=== PATIENT | male | born 1985 | race Caucasian/White ===

== ENCOUNTER 2020-09-08 15:17 | Outpatient (REF) | payer SELFPAY ==
[2020-09-10 12:14] LABS: Container Type 50 mL Conical; Midpiece Defect 12.5 %; Motile/mL 0.4 x10(6) (>=6.0); Motility 24 % (>=40); Semen Volume 2.5 mL (>=1.5); Sperm/mL 1.7 x10(6) (>=15.0); Study Type Semen; Supravital Stain 25 % live (>=58); Tail Defect 37.5 %; WBC/mL 0.17 x10(6) (<1.00)
== END 2020-09-08 15:18 | disposition home or self-care (01) ==
LOC: LBN 15:17
PROVIDERS: PCP Physician Assistant; Visit Provider Physician Assistant
DX: N46.9 Male infertility, unspecified (principal)
CPT/HCPCS: 89240; 89310

== ENCOUNTER 2022-05-15 16:41 | Inpatient (IN) | payer OTHER, SELFPAY ==
[2022-05-15] VITALS (30 sets, daily range): BP systolic 119–144; BP diastolic 45–77; PULSE 78–101; RESP 9–20; TEMP 36.7–38.9; O2SAT 94–100; BMI 25.8
--- NOTE | 2022-05-15 17:00 | DI.CT_ITS ---
Exam(s) CT ABDOMEN PELVIS W EXAM: CT ABDOMEN PELVIS W CLINICAL HISTORY: right lower abdominal pain TECHNIQUE: Imaging Protocol: Axial computed tomography images with coronal and sagittal reformatted images were created and reviewed CONTRAST MATERIAL: Intravenous: Omnipaque 350 Contrast volume:100 mL Oral: No. COMPARISON: No exams were available for comparison FINDINGS: High density material within the bowel likely represent previous patient meal. ABDOMEN: Lung Bases: Normal where visualized. Liver: Normal density. No measurable mass. Portal, Superior Mesenteric, and Splenic Veins: Unremarkable. Gallbladder and Biliary Tract: No radiodense calculus or dilation. Pancreas: Normal density, no abnormal calcifications or inflammatory process. Spleen: Normal. Adrenals: No masses seen. Kidneys: Normal size, contour and axis. No radiodense stones or obstructive uropathy. No masses seen. Abdominal Aorta: Abdominal portion non-dilated. Bowel: There is no evidence of bowel obstruction. There is a blind-ending thick-walled tubular struc ture in the right lower quadrant (series 5, images 520 through 631). The tip of the appendix is seen on image 524 and anterior to the right common iliac artery. It descends inferiorly and to the right to image 631 where it connects with the cecum. There is mild inflammatory change around the tubular structure. There is a small amount of free fluid in the pelvis. No focal fluid collection is seen to suggest an abscess. No pneumoperitoneum is present. Mildly enlarged lymph nodes are seen in the right lower quadrant which are likely reactive. Peritoneal Cavity: There is a small amount of free fluid in the pelvis. There are tiny foci of air s een within the peritoneal cavity which are felt to lie within bowel loops.Free air cannot be definite ly excluded. Lymph Nodes: Mildly enlarged lymph nodes seen in the pelvis. Bones: Within normal limits for the patient's age. Soft Tissues: Unremarkable. PELVIS: Bladder: Symmetric distention, no gross wall thickening. Reproductive Organs: Unremarkable as visualized. Lymph Nodes: Within normal limits. Bones: Within normal limits for the patient's age. There is a well-circumscribed lytic lesion in the left iliac bone. It has mildly expansile characteristics. No cortical disruption or periosteal zandra ction is seen. No associated soft tissue mass is present. This likely reflects a benign lesion. Fo llow-up as clinically appropriate. IMPRESSION: 1. Findings of an acute appendicitis. There is a small amount of free fluid in the pelvis. No absce ss or free air is identified. 2. Findings were discussed with Dr. Sanchez at 6:40 p.m. on 05/15/2022. RADIATION DOSE DELIVERED: 783.55mGy.cm Total DLP DATA REPOSITORY: All CT scans at this facility are submitted to the National Radiology Data Registry (NRDR) Dose Index Registry (DIR) with the [employer] (A[employer]). RADIATION OPTIMIZATION: All CT scans at this facility use at least one of these dose optimization te chniques: automated exposure control; mA and/or kV adjustment per patient size (includes targeted exa ms where dose is matched to clinical indication); or iterative reconstruction.
--- NOTE | 2022-05-15 17:07 | W.ED.GENAD ---
Discharge Plan Disposition Patient Disposition: Admit to [facility] Condition: Stable Discharge Details Clinical Impression: Acute appendicitis Primary Care Provider: Venancio Mandel ED Provider: Suleiman Sanchez Home Meds and New Rx's Prescriptions: No Action finasteride 1 mg Tablet 1 mg PO DAILY Medical Decision Making 36-year-old male with no significant past medical history except for right inguinal hernia presents today for abdominal pain. Patient states that the symptoms began about 2 to 3 weeks ago. He described it as an achy painful sensation throughout his lower abdomen. It was relatively constant but came and went in severity. He was uncertain if there was a relation to food. He had also been doing a significant amount of abdominal workouts and thought that it may have been musculoskeletal, however as the muscular pain improved, his abdominal pain continued. Patient states that pain climax until about a week ago when it went away nearly completely, but has since come back and is worse than before. He admits to nausea but denies vomiting. He maintains an extremely regimented daily diet routine, which is unchanging and on fluctuating. He has no spicy foods, significant tomato-based products, he denies any alcohol use whatsoever. He did have testosterone supplementations for his workout regiment 2 to 3 months ago, but has not been using for the last month or so since symptoms began. He did take some ibuprofen initially when the symptoms were going on, and this did not change his symptoms. He has noted a few darker stools about a week or so ago but this is resolved. He denies any personal or family history of Crohn's disease, ulcerative colitis, or irritable bowel syndrome. He denies any increased fatigue. Pain is made worse with movement and walking. Pain is located in the lower abdominal region currently. He describes the current pain as achy and shooting. No urinary complaint. Exam demonstrates a well-appearing male with mild to moderate right lower abdominal tenderness. No evidence of testicular torsion, no signs of genital pain or tenderness. No epigastric pain. Symptoms are concerning for potential intra-abdominal pathology including appendicitis, intra-abdominal abscess, or colitis. We will get a CT scan, rehydrate, monitor closely and reassess. 6:[address] scan was initially read by virtual radiology as negative for appendicitis, however it is certainly a challenging CT scan to read secondary to the patient's low body fat. They were not able to visualize the appendicitis on their assessment. We did add a CRP and this is notably elevated. I did consult surgery and discussed the case with Dr. Shook and she certainly also has clinical concern. Plan was initially to get a repeat scan with oral contrast, however after discussion with our onsite radiologist Dr. Wright, he believes that there is evidence of an acute appendicitis. I did discuss this with Dr. Shook. She will come and evaluate the patient. Patient will be sent to the OR. We will administer Zosyn here. I have extensively reviewed the treatment plan with the patient. I have addressed all patient concerns at this time. I have also discussed the plan with the admitting physician and they agree with the current assessment and plan and have agreed to assume responsibility for the patient. All parties demonstrate verbal understanding and agreement with our assessment and plan at this time. The documentation in this chart was dictated using [employer] dictation software. Please excuse any dictation errors. FINDINGS: High density material within the bowel likely represent previous patient meal. ABDOMEN: Lung Bases: Normal where visualized. Liver: Normal density. No measurable mass. Portal, Superior Mesenteric, and Splenic Veins: Unremarkable. Gallbladder and Biliary Tract: No radiodense calculus or dilation. Pancreas: Normal density, no abnormal calcifications or inflammatory process. Spleen: Normal. Adrenals: No masses seen. Kidneys: Normal size, contour and axis. No radiodense stones or obstructive uropathy. No masses seen. Abdominal Aorta: Abdominal portion non-dilated. Bowel: There is no evidence of bowel obstruction. There is a blind-ending thick-walled tubular structure in the right lower quadrant (series 5, images 520 through 631). The tip of the appendix is seen on image 524 and anterior to the right common iliac artery. It descends inferiorly and to the right to image 631 where it connects with the cecum. There is mild inflammatory change around the tubular structure. There is a small amount of free fluid in the pelvis. No focal fluid collection is seen to suggest an abscess. No pneumoperitoneum is present. Mildly enlarged lymph nodes are seen in the right lower quadrant which are likely reactive. Peritoneal Cavity: There is a small amount of free fluid in the pelvis. There are tiny foci of air seen within the peritoneal cavity which are felt to lie within bowel loops.Free air cannot be definitely excluded. Lymph Nodes: Mildly enlarged lymph nodes seen in the pelvis. Bones: Within normal limits for the patient's age. Soft Tissues: Unremarkable. PELVIS: Bladder: Symmetric distention, no gross wall thickening. Reproductive Organs: Unremarkable as visualized. Lymph Nodes: Within normal limits. Bones: Within normal limits for the patient's age. There is a well-circumscribed lytic lesion in the left iliac bone. It has mildly expansile characteristics. No cortical disruption or periosteal reaction is seen. No associated soft tissue mass is present. This likely reflects a benign lesion. Follow-up as clinically appropriate. IMPRESSION: 1. Findings of an acute appendicitis. There is a small amount of free fluid in the pelvis. No abscess or free air is identified. 2. Findings were discussed with Dr. Sanchez at 6:40 p.m. on 05/15/2022. HPI General Date/Time Provider Initiated Documentation: 05/15/22 16:48. HPI Narrative: 36-year-old male with no significant past medical history except for right inguinal hernia presents today for abdominal pain. Patient states that the symptoms began about 2 to 3 weeks ago. He described it as an achy painful sensation throughout his lower abdomen. It was relatively constant but came and went in severity. He was uncertain if there was a relation to food. He had also been doing a significant amount of abdominal workouts and thought that it may have been musculoskeletal, however as the muscular pain improved, his abdominal pain continued. Patient states that pain climax until about a week ago when it went away nearly completely, but has since come back and is worse than before. He admits to nausea but denies vomiting. He maintains an extremely regimented daily diet routine, which is unchanging and on fluctuating. He has no spicy foods, significant tomato-based products, he denies any alcohol use whatsoever. He did have testosterone supplementations for his workout regiment 2 to 3 months ago, but has not been using for the last month or so since symptoms began. He did take some ibuprofen initially when the symptoms were going on, and this did not change his symptoms. He has noted a few darker stools about a week or so ago but this is resolved. He denies any personal or family history of Crohn's disease, ulcerative colitis, or irritable bowel syndrome. He denies any increased fatigue. Pain is made worse with movement and walking. Pain is located in the lower abdominal region currently. He describes the current pain as achy and shooting. No urinary complaint. Related Data Home Medications Medication Instructions Recorded Confirmed finasteride 1 mg tablet 1 mg PO DAILY 05/15/22 05/15/22 Allergies Allergy/AdvReac Type Severity Reaction Status Date / Time No Known Allergies Allergy Unverified 05/15/22 16:49 General Stated Complaint: Abd Prob JARAD: 3 Review of Systems All systems reviewed & are unremarkable except as noted in HPI and below PFSH All Active Problems (Updated 05/15/22 @ 18:59 by Suleiman Sanchez DO) Acute appendicitis (Acute) Low sperm motility (Acute) Social History Smoking/Tobacco Use Status: Never Smoking risk assessment performed?: Yes Alcohol Intake: never Drug use: Never Substance use type: does not use Do you feel safe at home: Yes Do you feel safe in your relationship?: Yes Exam Narrative Exam Narrative: 1.Const: Well-nourished, Well-developed, appearing stated age 2.Eyes: PERRL, no conjunctival injection, and symmetrical lids. 3.ENT: Atraumatic external nose and ears. Moist MM. Neck: Symmetric, trachea midline, No thyromegaly. 4.CVS: +S1/S2, No murmurs or gallops. Peripheral pulses 2+ and equal in all extremities. Brisk capillary refill in all extremities. 5.RESP: Unlabored respiratory effort. Clear to auscultation bilaterally. No wheezes rales or rhonchi 6.GI: Soft, nondistended. No epigastric tenderness guarding or rebound. Patient does have notable lower tenderness primarily in the right, but also some on the left. Positive pain at McBurney's point. No scrotal or testicular pain. No significant large mass in the scrotum. Minimal hernia present. 7.MSK: Normocephalic/Atraumatic, Extremities w/o deformity or ttp No cyanosis or clubbing, Normal movement of all extremities 8.Skin: Warm, Dry. No rashes or lesions. 9.Neuro: certified physical therapist assistant II-XII grossly intact. Sensation grossly intact, no focal neurologic deficits. 10.Psych: (AAO) x3. Appropriate mood and affect Course Vital Signs Vital signs: Vital Signs Temperature 36.7 C 05/15/22 16:44 Pulse 83 05/15/22 16:44 Respiratory Rate 20 05/15/22 16:44 Blood Pressure 120/74 05/15/22 16:44 Pulse Oximetry 100 05/15/22 16:44 Temperature 36.7 C 05/15/22 16:44 Temperature Source Oral 05/15/22 16:44 Pulse 83 05/15/22 16:44 Respiratory Rate 20 05/15/22 16:44 Respiratory Effort Normal 05/15/22 16:54 Blood Pressure 120/74 05/15/22 16:44 Blood Pressure Position Sitting 05/15/22 16:44 Pulse Oximetry 100 05/15/22 16:44 Oxygen Delivery Method Room Air 05/15/22 16:44 Oxygen Flow Rate 0 05/15/22 16:44
[2022-05-15] MEDS: Normal Saline 1,000 ML 1000 ML IV (17:10)
[2022-05-15] MEDS: Acetaminophen 500 MG TAB 1000 MG PO (17:13)
[2022-05-15 17:15] LABS: Abs Immature Grans 0.04 10^3/uL (0.0-0.06); Absolute Basophil Count 0.04 10^3/uL (0.0-0.2); Absolute Eosinophil Count 0.12 10^3/uL (0.0-0.7); Absolute Lymphocyte Count 1.73 10^3/uL (1.2-3.4); Absolute Monocyte Count 1.15 10^3/uL (0.1-0.8); Absolute Neutrophil Count 10.63 10^3/uL (1.2-6.7); Basophils % 0.3; Eosinophils % 0.9; HGB 15.3 g/dL (13.5-17.5); Immature Grans % 0.3; Lymphocytes % 12.6; MCH 29.4 pg (27.0-33.0); MCHC 33.3 % (32.0-36.0); MCV 88 fL (80-95); Monocytes % 8.4; Neutrophils % 77.5; Platelet Count 262 10^3/uL (130-400); RBC 5.21 10^6/uL (4.36-5.78); RDW 12.4 % (11.8-14.1); RDW-SD 40.4 fL; WBC 13.71 10^3/uL (4.4-10.8)
[2022-05-15] MEDS: Omnipaque 350 MG/ML 100 ML BTL IJ (17:28)
[2022-05-15] MEDS: Normal Saline - Diluent 50 ML VIAL IJ (17:29)
[2022-05-15 17:33] LABS: ALT 35 U/L (16-63); AST 21 U/L (15-37); Albumin 3.4 g/dL (3.4-5.0); Alkaline Phosphatase 58 U/L (46-116); Anion Gap 6.3 mmol/L (3-11); BUN 21 mg/dL (7-18); Bilirubin, Total 0.3 mg/dL (0.2-1.0); CO2 29.7 mmol/L (21.0-32.0); CREATININE 1.1 mg/dL (0.70-1.30); Calcium 9.1 mg/dL (8.5-10.1); Chloride 100 mmol/L (98-107); Estimated GFR 88.67 (mL/min/1.73m2); Glucose 133 mg/dL (74-106); Lipase 42 U/L (16-77); Potassium 3.5 mmol/L (3.5-5.1); Sodium 136 mmol/L (136-145); Total Protein 7.6 g/dL (6.4-8.2)
--- NOTE | 2022-05-15 17:52 | DI.VRAD_ITS ---
PROCEDURE INFORMATION: Exam: CT Abdomen And Pelvis With Contrast Exam date and time: 05/15/2022 5:20 PM Age: 36 years old Clinical indication: Other: Right lower abdominal pain TECHNIQUE: Imaging protocol: Computed tomography of the abdomen and pelvis with contrast. Radiation optimization: All CT scans at this facility use at least one of these dose optimization techniques: automated exposure control; mA and/or kV adjustment per patient size (includes targeted exams where dose is matched to clinical indication); or iterative reconstruction. Contrast material: OMNIPAQUE 350; Contrast volume: 100 ml; Contrast route: INTRAVENOUS (IV); COMPARISON: No relevant prior studies available. FINDINGS: Liver: Normal. No mass. Gallbladder and bile ducts: Normal. No calcified stones. No ductal dilation. Pancreas: Normal. No ductal dilation. Spleen: Normal. No splenomegaly. Adrenal glands: Normal. No mass. Kidneys and ureters: Normal. No hydronephrosis. Stomach and bowel: The stomach has a moderate amount of fluid within it. No wall thickening. Apparently the patient has had radiopaque material that has made it to the descending colon with a small amount in the mid small bowel. No evidence of extravasation of the fluid. No signs of bowel obstruction. Appendix: Not clearly identified. There are no fat planes. Questionable tiny dots of free air within the peritoneal cavity but it is difficult to state of these are within bowel loops with very thin hoff. Intraperitoneal space: Small amount of free fluid within the pelvis. Vasculature: Unremarkable. No abdominal aortic aneurysm. Lymph nodes: Unremarkable. No enlarged lymph nodes. Urinary bladder: Unremarkable as visualized. Reproductive: Unremarkable as visualized. Bones/joints: Unremarkable. No acute fracture. Soft tissues: Unremarkable. IMPRESSION: No convincing evidence of appendicitis but a normal appendix is not seen. There is a small amount of free fluid within the pelvis. Difficult to exclude dots of free air along the anterior peritoneum but these dots could be within thin-walled small-bowel. Suggest management on clinical grounds. Dictated and Authenticated by: Ian Martinez MD. Ordering:MAGGIE Bearden MD
[2022-05-15 18:14] LABS: Bilirubin Negative (Negative); Blood Negative (Negative); Clarity Clear (Clear); Glucose 100 mg/dL (Negative); Ketones Negative (Negative); Leukocyte Esterase Negative (Negative); Nitrite Negative (Negative); Urobilinogen 0.2 mg/dL (Up to 0.2); pH 6.5 (5-8)
[2022-05-15 18:18] LABS: Epithelial Cells Few HPF (Negative); RBC 0-2 HPF (0-2); WBC 0-2 HPF (0-5)
[2022-05-15 18:19] LABS: Bacteria Negative HPF (Negative); C & S Indicated? No; Casts Negative LPF (Negative); Crystals Negative HPF (Negative); Mucus Negative (Negative)
[2022-05-15] MEDS: Omnipaque 350 MG/ML 50 ML BTL PO (18:40)
[2022-05-15] MEDS: Breeza Beverage 473 ML BTL PO ×2 (18:40→18:41)
[2022-05-15] MEDS: PIPERACILLIN/TAZO 4.5 GM in Normal Saline 100 ML IVPB (18:45)
--- NOTE | 2022-05-15 19:13 | ANES.PREOP_ITS ---
General Info Date of Service Date Performed: 05/15/22 Height: 5 ft 10 in Weight: 81.647 kg Body Mass Index (BMI): 25.8 Surgical Procedure: Operation Date: 05/15/22 20:00 Proposed Procedure Side Surgeon p Appendectomy Laparoscopic Ryann Shook, Meds Allergies and Home Medications Allergies Allergy/AdvReac Type Severity Reaction Status Date / Time No Known Allergies Allergy Unverified 05/15/22 16:49 Home Medication Medication Instructions Recorded finasteride 1 mg tablet 1 mg PO DAILY 05/15/22 Current Visit Medications: Current Medications Generic Name Dose Route Start Last Admin Trade Name Freq PRN Reason Stop Dose Admin Iohexol 100 ml 05/15/22 17:30 05/15/22 17:28 Omnipaque 350 Mg/Ml 100 Ml Btl IJ 06/14/22 23:59 100 ml DIRECTED SANDRA Administration Iohexol 50 ml 05/15/22 19:00 05/15/22 18:40 Omnipaque 350 Mg/Ml 50 Ml Btl PO 06/14/22 23:59 50 ml DIRECTED SANDRA Administration Miscellaneous Medication 473 ml 05/15/22 18:45 05/15/22 18:40 Breeza Beverage 473 Ml Btl PO 06/14/22 23:59 473 ml DIRECTED SANDRA Administration Miscellaneous Medication 473 ml 05/15/22 18:45 05/15/22 18:41 Breeza Beverage 473 Ml Btl PO 06/14/22 23:59 473 ml DIRECTED SANDRA Administration Sodium Chloride 50 ml 05/15/22 17:30 05/15/22 17:29 Normal Saline - Diluent 50 Ml Vial IJ 50 ml .FOR DI USE SANDRA Administration PFS Active Problems Active Problems: Problem Status Onset Code Acute appendicitis K35.80 Low sperm motility R86.8 Tobacco Smoking/Tobacco Use Status: Never Alcohol Alcohol Intake: never Substance Use Substance use: Never Substance use type: does not use Vital Signs and Lab Results Vital Signs Most Recent Vital Signs in EMR: Most Recent Vital Signs Temp Pulse Resp BP Pulse Ox 36.7 C 83 20 120/74 100 05/15/22 16:44 05/15/22 16:44 05/15/22 16:44 05/15/22 16:44 05/15/22 16:44 Lab Results 05/15/22 16:57 05/15/22 16:57 Blood Type / Crossmatch: Patient ABO/Rh Pending 05/15/22 Complete Blood Count: White Blood Count 13.71 10^3/uL (4.4-10.8) H 05/15/22 16:57 Red Blood Count 5.21 10^6/uL (4.36-5.78) 05/15/22 16:57 Hemoglobin 15.3 g/dL (13.5-17.5) 05/15/22 16:57 Hematocrit 46.0 % (40.0-50.0) 05/15/22 16:57 Platelet Count 262 10^3/uL (130-400) 05/15/22 16:57 Complete Metabolic Panel: Sodium 136 mmol/L (136-145) 05/15/22 16:57 Potassium 3.5 mmol/L (3.5-5.1) 05/15/22 16:57 Chloride 100 mmol/L (98-107) 05/15/22 16:57 Carbon Dioxide 29.7 mmol/L (21.0-32.0) 05/15/22 16:57 BUN 21 mg/dL (7-18) H 05/15/22 16:57 Creatinine 1.1 mg/dL (0.70-1.30) 05/15/22 16:57 Est GFR (CKD-EPI 2020) 88.67 (mL/min/1.73m2) 05/15/22 16:57 Calcium 9.1 mg/dL (8.5-10.1) 05/15/22 16:57 Albumin 3.4 g/dL (3.4-5.0) 05/15/22 16:57 Glucose 133 mg/dL (74-106) H 05/15/22 16:57 C-Reactive Protein 8.40 mg/dL (0.0-0.3) H 05/15/22 16:57 Liver Function Panel: Alanine Aminotransferase (ALT/SGPT) 35 U/L (16-63) 05/15/22 16: 57 Aspartate Amino Transf (AST/SGOT) 21 U/L (15-37) 05/15/22 16:57 Coagulation Panel: No Data to Display Cardiac Panel: No Data to Display Arterial Blood Gas: No Data to Display Venous Blood Gas: No Data to Display Pancreas Panel: Lipase 42 U/L (16-77) 05/15/22 16:57 Thyroid Panel: No Data to Display Infectious Disease: No Data to Display Blood Cultures: No Data to Display Toxicology Panel: No Data to Display Anesthesia Assessment and Plan Anesthesia History Personal History: No History of General Anesthesia Family History: No Family History of Anesthesia Complications Exercise Tolerance Exercise Tolerance: Metabolic Equivalents>4 Pertinent Negatives Pertinent Negatives: No Symptoms of GERD, No Major Pulmonary Symptoms or Complaints and No History of CVA/TIA Cardiac & Pulmonary Exam Cardiac Exam: Normal S1/S2 Heart Sounds and Known Innocent Murmur (No appreciated today on exam. Patient believes it may have resolved (was from childhood)) Pulmonary Exam: Clear Bilateral Breath Sounds Implantable Cardiac Device Does patient have a Pacemaker or an ICD?: No Airway Exam Known Difficult Airway: No Mallampati Class: 2 Mouth Opening: Normal (> 3cm) Thyromental Distance: Greater than 3 cm Neck Range of Motion: Full ROM Neck Circumference: Normal Teeth Condition: Normal Dentition ASA Classification ASA Score: ASA 2 Emergency Case?: Yes NPO Status NPO Status: NPO Clear Liquids>2 hours and Full Stomach Anesthesia Plan Resuscitation Status: Full Code Anesthesia Technique: General Anesthesia Airway Planned: Endotracheal Tube Monitors Used: Standard Monitors Preoperative Comments:: Known whey bar and liquids around 1400. Patient with free air, we will proceed as modified RSI and will place OGT. Patient will be ramped.
--- NOTE | 2022-05-15 19:30 | W.PM.HP.N ---
Date of service: 05/15/22 Time of Service: 19:30 Assessment and Plan Assessment and plan (1) Acute appendicitis: Status: Acute Assessment and plan: Informed consent is obtained for the procedural (explained in simple layman's terms that the pt and/or family could understand) explaining risks vs benefits and alternatives to the procedure and consequences if we do not do the procedure. Risks include but are not limited to: bleeding, infections, pneumonia, blood clots/DVT/PE, anesthesia (aspiration, damage to teeth/airway/ME/CVA//prolonged mechanical ventilation/PTX/IV infections), damage to bowel, bladder, blood vessels. Leakage from anastomosis requiring colostomy/ Wound infections requiring further surgery. abscess ?Scarring and disfigurement. Subsequent bowel obstructions from scar tissue.? Chronic pain or numbness from the incision, or hernia. Possible open procedure if minimally invasive procedure is being attempted. History of Present Illness Narrative: Patient is a 36-year-old otherwise healthy male who began experiencing right lower quadrant pain last night. He noted he did not have much of an appetite and was very tired. Back in the end of April he had a couple of days where he also experienced some right lower quadrant pain but it was more diffuse. He also was experiencing dark stools at that time. He had eaten eggs and normally has an egg intolerance so thought it was related to that. He had no diarrhea or rectal bleeding. He has not had any diarrhea or bleeding today. The pain today is much more intense and localized. He is also noted chills and feeling clammy. He did eat today but notes his appetite is off from what it normally is. He also notes fatigue. He does have a 13,000 white count with a left shift . CT scan was reviewed by Dr. Wright from radiology who does feel that this is an acute appendicitis Patient has never had surgery before. And he has never had anesthesia before. He denies any history of heart attack or stroke. He denies any diabetes, asthma or RHIANNON, or seizures. he is a non-smoker nondrinker. He denies using any steroids. Review of Systems All systems reviewed & are unremarkable except as noted in HPI and below PFSH All Active Problems Acute appendicitis (Acute) Low sperm motility (Acute) Social History (Reviewed 05/15/22 @ 19:36 by JOAO Oliva Smoking/Tobacco Use Status: Never Smoking risk assessment performed?: Yes Alcohol Intake: never Drug use: Never Substance use type: does not use Do you feel safe at home: Yes Do you feel safe in your relationship?: Yes Meds Allergies and Home Medications Allergies Allergy/AdvReac Type Severity Reaction Status Date / Time No Known Allergies Allergy Unverified 05/15/22 16:49 Home Medications Medication Instructions Recorded Confirmed Type finasteride 1 mg tablet 1 mg PO DAILY 05/15/22 05/15/22 History Exam Const General: cooperative, healthy appearing and comfortable Nutritional Appearance: average body habitus Orientation: alert, awake and oriented x3 Other: PHYSICAL EXAM GENERAL APPEARANCE: Alert, healthy appearance, oriented, x 3,? in no acute distress HYDRATION: Well hydrated HEAD, EYES, EARS, NECK, THROAT: Head is normocephalic, pupils equal, round, reactive to light and accommodation, ocular movement intact, sclera clear and no jaundice. ?Dentition intact. NECK: ? Trachea midline.? Neck supple.? No JVD LUNGS: normal respiration/normal chest excursion. ?Clear to auscultation bilaterally. ?No wheeze. ?HEART: Regular rate and rhythm. no murmurs ABDOMEN: RLQ pain. ? Normal bowel sounds.? No hernias.? Results Labs 05/15/22 16:57 05/15/22 16:57 Labs: Laboratory Results - last 24 hr 05/15/22 05/15/22 05/15/22 16:57 16:57 16:57 WBC 13.71 H RBC 5.21 Hgb 15.3 Hct 46.0 MCV 88 MCH 29.4 MCHC 33.3 RDW 12.4 Plt Count 262 MPV 10.0 Immature Gran % 0.3 Neutrophils % 77.5 Lymphocytes % 12.6 Monocytes % 8.4 Eosinophils % 0.9 Basophils % 0.3 Nucleated RBC % 0.0 Absolute Neutrophils 10.63 H Absolute Lymphocytes 1.73 Absolute Monocytes 1.15 H Absolute Eosinophils 0.12 Absolute Basophils 0.04 Sodium 136 Potassium 3.5 Chloride 100 Carbon Dioxide 29.7 Anion Gap 6.3 BUN 21 H Creatinine 1.1 Est GFR (CKD-EPI 2020) 88.67 Glucose 133 H Calcium 9.1 Total Bilirubin 0.3 AST 21 ALT 35 Alkaline Phosphatase 58 C-Reactive Protein 8.40 H Total Protein 7.6 Albumin 3.4 Lipase 42 Urine Color Urine Clarity Urine pH Ur Specific [place] Urine Protein Urine Ketones Urine Blood Urine Nitrite Urine Bilirubin Urine Urobilinogen Ur Leukocyte Esterase Urine RBC Urine WBC Ur Epithelial Cells Urine Crystals Urine Bacteria Urine Casts Urine Mucus Ur Culture Indicated? Urine Glucose 05/15/22 18:02 WBC RBC Hgb Hct MCV MCH MCHC RDW Plt Count MPV Immature Gran % Neutrophils % Lymphocytes % Monocytes % Eosinophils % Basophils % Nucleated RBC % Absolute Neutrophils Absolute Lymphocytes Absolute Monocytes Absolute Eosinophils Absolute Basophils Sodium Potassium Chloride Carbon Dioxide Anion Gap BUN Creatinine Est GFR (CKD-EPI 2020) Glucose Calcium Total Bilirubin AST ALT Alkaline Phosphatase C-Reactive Protein Total Protein Albumin Lipase Urine Color Yellow Urine Clarity Clear Urine pH 6.5 Ur Specific [place] 1.010 Urine Protein 30 H Urine Ketones Negative Urine Blood Negative Urine Nitrite Negative Urine Bilirubin Negative Urine Urobilinogen 0.2 Ur Leukocyte Esterase Negative Urine RBC 0-2 Urine WBC 0-2 Ur Epithelial Cells Few Urine Crystals Negative Urine Bacteria Negative Urine Casts Negative Urine Mucus Negative Ur Culture Indicated? No Urine Glucose 100 H Last Vital Signs Temp 36.7 C 05/15/22 16:44 Pulse 83 05/15/22 16:44 Resp 20 05/15/22 16:44 BP 120/74 05/15/22 16:44 Pulse Ox 100 05/15/22 16:44 Time Spent Time spent with Patient: 55-74 minutes Time was spent: preparing to see the patient(eg.review tests), obtaining and/or reviewing separately otained hiistory, ordering medications,tests, procedures, referring, communicating with other health career technology teacher, indepentently interpreting results, counseling the patient and care coordination
[2022-05-15] MEDS: Lactated Ringers 1,000 ML 30 ML IV (19:50)
--- NOTE | 2022-05-15 20:30 | APP_PTH ---
PATIENT: Tj Shukla LOC: U#:[id number] AGE/SX: 36/M ROOM: 206 RE05/15/[address]: Ryann Shook : 1985 BED: A DIS: 05/20/2022 SPEC #: [id number] RECD: 05/16/22 12:32 STATUS: SOUFrancoise REQ #: [id number] NYDIA: 05/15/22 20:[address]: Ryann Shook DEPT: Surgical Specimen RECD BY: Randee Licona ENTERED: 05/16/22 12:33 SP TYPE: Appendix OTHR DR: Venancio Mandel Tissues: 1 - APPENDIX NOT INCIDENTAL Procedures: GROSS AND MICRO LEVEL 3 Comments: [id number]
[2022-05-15] MEDS: Bupivacaine 0.25% Pres-Free W/EPI 30 ML VIAL (21:50)
--- NOTE | 2022-05-15 22:12 | W.PM.OP ---
Date of service: 05/15/22 Time of Service: 22:12 Operative Note Operative Note DATE OF PROCEDURE: 05/15/22 PRE-OP DIAGNOSIS: acute appendicitis POST-OP DIAGNOSIS: other (necrotic appendix ) PROCEDURE: attempted laprascopic appendectomy opne appendix SURGEON: Ryann Shook ELECTRONIC SYSTEMS TECHNICIAN: Tabatha Huitron ANESTHESIA TYPE: Local By Surgeon and General LMA/ETT Refer to Anesthesia Record ESTIMATED BLOOD LOSS: 50 PATHOLOGY: other COMPLICATIONS: None Patient was transported to: PACU Patient's condition: stable Procedure Description: INDICATIONS: The patient has signs and symptoms compatible with acute appendicitis and is brought to the OR for laparoscopic appendectomy, possible open procedure. Informed consent is obtained for the procedural (explained in simple layman's terms that the pt and/or family could understand) explaining risks vs benefits and alternatives to the procedure and consequences if we do not do the procedure. Risks include but are not limited to:bleeding,infections, pneumonia, blood clots/DVT/PE, anesthesia(aspiration, damage to teeth/airway/OR/CVA//prolonged mechanical ventilation/PTX/IV infections), damage to bowel, bladder,blood vessels, ureters. Damage to solid organs requiring removal. Infertility. Leakage from anastomosis requiring colostomy. Wound infections requirng further surgery. Scarring and disfigurement. Subsequent bowel obstructions from scar tissue. Possible open procedure if minimaly invsive procedure is being attempted. Abscess and stump appendicitis as well as others. DESCRIPTION OF PROCEDURE: The patient was brought to the operating room suite and placed in supine position. Anesthesia was administered per the Department of Anesthesia. A Singletary catheter and OG tube are placed. The patient was prepped and draped in the usual sterile fashion using ChloraPrep scrub solution. Pause for the cause was done. 30 mL of 1% buffered was used for local anesthetization. A stab incision was made in the umbilicus and the Veress was inserted. Drop test was positive and insufflation was begun. When 15 mm of pressure was noted on the monitor, the Veress was removed, a #5 port inserted. Camera inserted through the port shows no damage to underlying structures. Bowel, liver and stomach that are visualized are normal in appearance. The appendix is necrotic and enlarged. It is adhered down to the mesentery. There is purulent membrane and separation on the appendix itself. There is no abscess around the cecum. There is no purulent drainage in the pelvis. A 12 mm port was then placed in the suprapubic position under direct visualization following creation of a local field block as well as a second 5 mm port in the LLQ. The appendix is dissected out from the mesentery. Upon grasping the appendix, it is quite necrotic and breaks apart. There is purulent discharge into the abdominal cavity. The base of the appendix and onto the cecum is necrotic and not healthy. The cecum itself is inflamed around the base of the appendix as well. The base of the appendix is not and will not hold rupa. At this point it was decided to open so that we could obtain better control of the base of the appendix/cecum. All laparoscopic instruments and ports are removed/and passed off the field. Pneumoperitoneum is evacuated. The skin under the two 5 mm port sites is closed with 4-0 Monocryl. A local anesthetic was infiltrated into the right lower quadrant and a small incision was made. Dissection was carried down to the fascia. The external oblique was sharply divided. The muscles were retracted apart. The peritoneum was then incised. The appendix was easily identified. The cecum was carefully brought out of the incision using a moistened Ray-Orquidea. The mesoappendix was divided between clamps and tied with 0 Vicryl tie and clips. The appendix had auto amputated from the cecum. This is passed off the field. The necrotic tissue at the base of the cecum is removed. The cecum is closed in 2 layers with a 4-0 Vicryl and a 3-0 Prolene. Hemostasis was also assured at the mesoappendix. The cecum was then reduced back into the abdominal cavity and irrigation was then performed. A 15 millimeter Migue drain is then brought out through the 10 mm port site. It is sewn in with a 2-0 Prolene. The wound was then closed in layers. The peritoneum was closed with a running 2-0 Vicryl suture. The rest of the layers were closed with interrupted 0 Vicryl sutures. The skin was irrigated and then closed in layers. The dermis was reapproximated with 3-0 Vicryl suture, and the skin was closed with rupa. Sterile dressings were applied. The patient tolerated the procedure well and was transferred to the recovery room in stable condition. The specimen was sent for routine evaluation. Patient tolerated the procedure well without complication and transferred to the recovery room in stable condition. He will be admitted to the hospital for antibiotics.
--- NOTE | 2022-05-15 22:13 | W.PM.PROGNOT ---
Date of Service Date of service: 05/15/22 Time of Service: 00:35 Assessment and Plan Assessment and plan (1) Acute appendicitis: Status: Acute Subjective Subjective Interval history since last seen: The patient is doing well post-op. Their pain is well controlled. They are having no nausea or vomiting. The pt is not having any chest pain or SOB, productive cough; no calf pain or swelling. The pt is making good urine. The pt pain is adequately controlled. The case was discussed with nursing and patient?s progress reviewed. All of the pt's home medications were addressed and adjusted accordingly for their oral intact status. ?HEENT: no jaundice. no eye pain/drainage/redness/swelling. Mild sore throat ?Cardio- NSR no chest pain, BP stable. ?Pulm: no sob or productive cough. no hemoptysis ?Incision- clean/dry. Dressing intact no excessive bleeding or drainage -Drain has high output of very light sanguinous fluid. Most of this is left over irrigation fluid. ?I discussed with the patient about the findings in surgery and the pt's progress. He had a very suppurative necrotic appendicitis, that was necrotic at the base. Unfortunately I could not get purchase at the base to do a stapled anastomosis. And it was much safer to do open surgery and suture the stump of the appendix. He still is at high risk for abscess. ?We reviewed expectations for progress in the hospital; what the pt could expect for recovery time and length of stay. We discussed the importance of walking and pulmonary toilet to avoid blood clots and pneumonia. ?Continue current plans for pulmonary toilet, GI and DVT prophylaxis. We shall continue the current plan for pain management as it is at an appropriate level, and working well for the pt. Appropriate measures will be taken for constipation prevention, and this was also reviewed with the pt. The wound care plan was reviewed with nursing as well. ?see orders Objective Last Vital Signs Temp 38.1 C H 05/15/22 21:52 Pulse 94 H 05/15/22 22:12 Resp 13 05/15/22 22:12 BP 130/61 05/15/22 22:12 Pulse Ox 97 05/15/22 22:12 Laboratory Results - last 24 hr 05/15/22 05/15/22 05/15/22 16:57 16:57 16:57 WBC 13.71 H RBC 5.21 Hgb 15.3 Hct 46.0 MCV 88 MCH 29.4 MCHC 33.3 RDW 12.4 Plt Count 262 MPV 10.0 Immature Gran % 0.3 Neutrophils % 77.5 Lymphocytes % 12.6 Monocytes % 8.4 Eosinophils % 0.9 Basophils % 0.3 Nucleated RBC % 0.0 Absolute Neutrophils 10.63 H Absolute Lymphocytes 1.73 Absolute Monocytes 1.15 H Absolute Eosinophils 0.12 Absolute Basophils 0.04 Sodium 136 Potassium 3.5 Chloride 100 Carbon Dioxide 29.7 Anion Gap 6.3 BUN 21 H Creatinine 1.1 Est GFR (CKD-EPI 2020) 88.67 Glucose 133 H Calcium 9.1 Total Bilirubin 0.3 AST 21 ALT 35 Alkaline Phosphatase 58 C-Reactive Protein 8.40 H Total Protein 7.6 Albumin 3.4 Lipase 42 Urine Color Urine Clarity Urine pH Ur Specific [place] Urine Protein Urine Ketones Urine Blood Urine Nitrite Urine Bilirubin Urine Urobilinogen Ur Leukocyte Esterase Urine RBC Urine WBC Ur Epithelial Cells Urine Crystals Urine Bacteria Urine Casts Urine Mucus Ur Culture Indicated? Urine Glucose 05/15/22 18:02 WBC RBC Hgb Hct MCV MCH MCHC RDW Plt Count MPV Immature Gran % Neutrophils % Lymphocytes % Monocytes % Eosinophils % Basophils % Nucleated RBC % Absolute Neutrophils Absolute Lymphocytes Absolute Monocytes Absolute Eosinophils Absolute Basophils Sodium Potassium Chloride Carbon Dioxide Anion Gap BUN Creatinine Est GFR (CKD-EPI 2020) Glucose Calcium Total Bilirubin AST ALT Alkaline Phosphatase C-Reactive Protein Total Protein Albumin Lipase Urine Color Yellow Urine Clarity Clear Urine pH 6.5 Ur Specific [place] 1.010 Urine Protein 30 H Urine Ketones Negative Urine Blood Negative Urine Nitrite Negative Urine Bilirubin Negative Urine Urobilinogen 0.2 Ur Leukocyte Esterase Negative Urine RBC 0-2 Urine WBC 0-2 Ur Epithelial Cells Few Urine Crystals Negative Urine Bacteria Negative Urine Casts Negative Urine Mucus Negative Ur Culture Indicated? No Urine Glucose 100 H Time Spent with Patient Time Spent with Patient: 25-34 minutes Time was spent: ordering medications,tests, procedures, referring, communicating with other health pharmacy customer care specialist, counseling the patient and care coordination
--- NOTE | 2022-05-15 22:50 | W.ANESPOSTOP ---
Postoperative Evaluation Date, Time and Location Date Performed: 05/15/22 Time Performed: 22:50 Patient Location: PACU Vital Signs Most Recent Imported Vital Signs: Most Recent Vital Signs Temp Pulse Resp BP Pulse Ox 38.9 C H 87 17 137/58 L 98 05/15/22 22:17 05/15/22 22:29 05/15/22 22:29 05/15/22 22:29 05/15/22 22:29 Pain Score Most Recent Pain Score: Most Recent Pain Score Pain Level 0 05/15/22 22:29 Assessment Mental Status: Awake (Alert & Oriented to Patient Baseline) Airway and Respiratory Function: Abnormal Respiratory exam (See explanation) (Still requiring 2lpm. Handoff to floor recommended continuous pulse ox, messaged dr donis and she is aware. ) and Patient has been admitted and is receiving care as an inpatient Cardiovascular Function: Hemodynamically Stable Hydration Status: Adequately Hydrated Nausea & Vomiting: No Nausea or Vomiting Pain: Pt. Denies Any Pain Peripheral Nerve Block: Patient did not receive a nerve block
[2022-05-15] MEDS: ACETAMINOPHEN 1,000 MG/100 ML BTL 400 MG IVPB (23:15)
[2022-05-15] MEDS: Ketorolac 15 MG/ML VIAL IVP (23:16)
[2022-05-15] MEDS: Enoxaparin 40 MG/0.4 ML SYR SC (23:17)
[2022-05-16] VITALS (7 sets, daily range): BP systolic 110–137; BP diastolic 63–70; PULSE 66–88; RESP 16–20; TEMP 36.6–38.1; O2SAT 95–99
[2022-05-16] MEDS: POTASSIUM CHLORIDE/D5-0.45NACL 1,000 ML 75 MEQ IV ×2 (00:36→14:27)
[2022-05-16] MEDS: PIPERACILLIN/TAZO 3.375 GM in Normal Saline 50 ML IVPB ×4 (03:30→22:32)
[2022-05-16] MEDS: ACETAMINOPHEN 1,000 MG/100 ML BTL 400 MG IVPB ×4 (03:30→21:57)
[2022-05-16] MEDS: MORPHine 2 MG/ML SYR IVP ×2 (03:31→17:54)
[2022-05-16] MEDS: Ketorolac 15 MG/ML VIAL IVP ×3 (05:30→17:58)
[2022-05-16 06:32] LABS: Abs Immature Grans 0.11 10^3/uL (0.0-0.06); Absolute Monocyte Count 0.94 10^3/uL (0.1-0.8); Basophils % 0.1; HCT 39.8 % (40.0-50.0); HGB 13.4 g/dL (13.5-17.5); Immature Grans % 0.5; Lymphocytes % 2.7; MCH 29.2 pg (27.0-33.0); MCHC 33.7 % (32.0-36.0); MCV 87 fL (80-95); MPV 10.3 fL (8.0-11.0); Monocytes % 4.5; Neutrophils % 92.2; Platelet Count 215 10^3/uL (130-400); RBC 4.59 10^6/uL (4.36-5.78); RDW 12.5 % (11.8-14.1); RDW-SD 39.9 fL; WBC 20.92 10^3/uL (4.4-10.8)
[2022-05-16 06:38] LABS: Absolute Basophil Count 0.02 10^3/uL (0.0-0.2); Absolute Lymphocyte Count 0.56 10^3/uL (1.2-3.4); Absolute Neutrophil Count 19.29 10^3/uL (1.2-6.7)
[2022-05-16] MEDS: Methocarbamol 750 MG TAB PO ×3 (08:38→19:49)
[2022-05-16] MEDS: Polyethylene Glycol 3350 17 GM PACKET PO (08:38)
--- NOTE | 2022-05-16 08:43 | INITIAL_ITS ---
- If Service Date Differs Date of service: 05/16/22 Time of Service: 08:43 Care Management Initial Assess REASON FOR HOSPITALIZATION:: appendicitis PAST MEDICAL HISTORY/PAST SURGICAL HISTORY:: Acute appendicitis (Acute). Low sperm motility (Acute) PREVIOUS FUNCTIONAL STATUS/SOCIAL/FAMILY SUPPORTS:: Tj lives in [facility] with a roomate. 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 He has one child, a 6 year old son, that he is close to. He does not receive any community supports although a referral was sent by CM to [facility] today to explore the possibility of getting ins urance. CURRENT FUNCTIONAL STATUS:: Tj was sitting up in a chair when CM met with him. He was polite but not overly talkative. He admitted to having continued pain but stated that it is different than before surgery. He is not sure how long he will be in the hospital or if the procedure done was laparoscopic or an open appy. Tj verbalized that he does not anticipate needing any services at discharge. ADVANCE DIRECTIVES:: none on file Has patient been provided with info about the portal/API?: Yes Did the patient sign up for the portal?: No CODE STATUS:: Full Code INSURANCE COVERAGE / FINANCIAL ISSUES:: self pay CURRENT HOME/COMMUNITY SERVICES/EQUIPMENT:: none PRIMARY CARE PHYSICIAN:: Venancio Mandel POTENTIAL DISCHARGE NEEDS:: folloqw up with surgeon and plan of care PATIENT/FAMILY EDUCATION NEEDS:: Review of discharge instructions, activity, limitations, diet, follow up plan, Ask Me Three. TRANSPORTATION:: via private vehicle with a friend PLAN:: Expect Tj will discharge home with no new services unless he requires home health nursing for dressing changes. He will follow up with his surgeon and plan of care and transport with a friend. CM will follow and assess for discharge needs.
--- NOTE | 2022-05-16 12:02 | PHA.REVIEW2 ---
Pharmacy Admission Review - Admission Clinical Review (Last Reviewed 05/15/22 @ 19:36 by Ryann Shook DO) Acute appendicitis (Acute) No Known Allergies Allergy (Unverified 05/15/22 16:49) Resuscitation Status Full Code Height 5 ft 10 in Weight 81.647 kg - Renal Dosing Renal Dosing: BUN 21 mg/dL (7-18) H 05/15/22 16:57 Creatinine 1.1 mg/dL (0.70-1.30) 05/15/22 16:57 Medications needing adjustments: Intervened List of meds needing interventions: eCrCl 106.28 ml/min -- notified MD that extended infusion dosing is preferred, ordered adjusted with MD approval - Anticoagulation Anticoagulation: Hgb 13.4 g/dL (13.5-17.5) L 05/16/22 05:25 Hct 39.8 % (40.0-50.0) L 05/16/22 05:25 Plt Count 215 10^3/uL (130-400) 05/16/22 05:25 Creatinine 1.1 mg/dL (0.70-1.30) 05/15/22 16:57 DVT Prophylaxis: Reviewed Medications: Enoxaparin - Opiate Usage Evaluate Pain Scale/Pains Meds: Reviewed - Relevant Labs Sodium 136 mmol/L (136-145) 05/15/22 16:57 Potassium 3.5 mmol/L (3.5-5.1) 05/15/22 16:57 Chloride 100 mmol/L (98-107) 05/15/22 16:57 C-Reactive Protein 8.40 mg/dL (0.0-0.3) H 05/15/22 16:57 Electrolytes, C-Reactive P, ESR: Reviewed - DM Control DM Control: Glucose 133 mg/dL (74-106) H 05/15/22 16:57 DM Control: N/A - Cardiac Review BP, HR, EF%: N/A - Qtc Review QTc: N/A - IV to PO Switch IV Medications: Intervened (Still receiving schedule IV tylenol. 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
[2022-05-16] MEDS: Normal Saline Flush 10 ML SYR IVP (15:40)
--- NOTE | 2022-05-16 16:59 | PGE_ITS ---
Date of Service Date of service: 05/16/22 Time of Service: 16:59 Assessment and Plan Assessment and plan (1) Acute appendicitis: Status: Acute Assessment and plan: Tj is POD #1 s/p Lap appi for a necrotic appendix. He is on ABX Activity- up and walking as much as possible Diet- continue on clear liquids for now DVT prophilaxis- SCD's and LOvenox Discharge- await return of his bowel function and decrease in his Leukocytosis. He will need 7-10 days of antibiotics (2) Leukocytosis: Status: Acute Subjective Subjective Interval history since last seen: Tj is doing OK. His biggest complaint is a headache. He is having some abdominal pain that is intermittent. He is passing a little bit of flatus. He does state that the abdominal pain gets better once he passes some gas. He is tolerating po liquids. He has been up and walking. He is not nauseated. He does have a slight fever. Exam Const General: comfortable, no acute distress and ill appearing Nutritional Appearance: well nourished and thin Orientation: alert and oriented x3 HENMT Head: normocephalic and atraumatic Resp Effort & Inspection: normal respiratory effort Cardio Rate: regular rate Rhythm: regular rhythm GI Inspection: incision (c/d/i) and other (LAURYN drain with serosanguinous discharge) Palpation: soft, no hepatosplenomegaly and tender (appropriately TTP) Auscultation: hypoactive bowel sounds Objective Last Vital Signs Temp 100.0 F H 05/16/22 14:48 Pulse 83 05/16/22 14:48 Resp 16 05/16/22 14:48 BP 131/70 05/16/22 14:48 Pulse Ox 96 05/16/22 14:48 Laboratory Results - last 24 hr 05/15/22 05/15/22 05/15/22 16:57 16:57 16:57 WBC 13.71 H RBC 5.21 Hgb 15.3 Hct 46.0 MCV 88 MCH 29.4 MCHC 33.3 RDW 12.4 Plt Count 262 MPV 10.0 Immature Gran % 0.3 Neutrophils % 77.5 Lymphocytes % 12.6 Monocytes % 8.4 Eosinophils % 0.9 Basophils % 0.3 Nucleated RBC % 0.0 Absolute Neutrophils 10.63 H Absolute Lymphocytes 1.73 Absolute Monocytes 1.15 H Absolute Eosinophils 0.12 Absolute Basophils 0.04 Sodium 136 Potassium 3.5 Chloride 100 Carbon Dioxide 29.7 Anion Gap 6.3 BUN 21 H Creatinine 1.1 Est GFR (CKD-EPI 2020) 88.67 Glucose 133 H Calcium 9.1 Total Bilirubin 0.3 AST 21 ALT 35 Alkaline Phosphatase 58 C-Reactive Protein 8.40 H Total Protein 7.6 Albumin 3.4 Lipase 42 Urine Color Urine Clarity Urine pH Ur Specific Slaughters Urine Protein Urine Ketones Urine Blood Urine Nitrite Urine Bilirubin Urine Urobilinogen Ur Leukocyte Esterase Urine RBC Urine WBC Ur Epithelial Cells Urine Crystals Urine Bacteria Urine Casts Urine Mucus Ur Culture Indicated? Urine Glucose Patient ABO/Rh 05/15/22 05/15/22 05/16/22 18:02 18:53 05:25 WBC 20.92 H RBC 4.59 Hgb 13.4 L Hct 39.8 L MCV 87 MCH 29.2 MCHC 33.7 RDW 12.5 Plt Count 215 MPV 10.3 Immature Gran % 0.5 Neutrophils % 92.2 Lymphocytes % 2.7 Monocytes % 4.5 Eosinophils % 0.0 Basophils % 0.1 Nucleated RBC % 0.0 Absolute Neutrophils 19.29 H Absolute Lymphocytes 0.56 L Absolute Monocytes 0.94 H Absolute Eosinophils 0.00 Absolute Basophils 0.02 Sodium Potassium Chloride Carbon Dioxide Anion Gap BUN Creatinine Est GFR (CKD-EPI 2020) Glucose Calcium Total Bilirubin AST ALT Alkaline Phosphatase C-Reactive Protein Total Protein Albumin Lipase Urine Color Yellow Urine Clarity Clear Urine pH 6.5 Ur Specific Slaughters 1.010 Urine Protein 30 H Urine Ketones Negative Urine Blood Negative Urine Nitrite Negative Urine Bilirubin Negative Urine Urobilinogen 0.2 Ur Leukocyte Esterase Negative Urine RBC 0-2 Urine WBC 0-2 Ur Epithelial Cells Few Urine Crystals Negative Urine Bacteria Negative Urine Casts Negative Urine Mucus Negative Ur Culture Indicated? No Urine Glucose 100 H Patient ABO/Rh Cancelled Time Spent with Patient Time Spent with Patient: 25-34 minutes Time was spent: preparing to see the patient(eg.review tests), obtaining and/or reviewing separately otained hiistory and counseling the patient
[2022-05-16] MEDS: oxyCODONE 5 MG TAB PO (20:02)
[2022-05-16] MEDS: Enoxaparin 40 MG/0.4 ML SYR SC (22:33)
[2022-05-17] VITALS (11 sets, daily range): BP systolic 130–139; BP diastolic 66–72; PULSE 77–106; RESP 16–20; TEMP 37.6–39.6; O2SAT 96–98
--- NOTE | 2022-05-17 | DI.CT_ITS ---
Exam(s) CT HEAD WO EXAM: CT HEAD WO CLINICAL HISTORY: new refractory headache. TECHNIQUE: Imaging Protocol: Axial computed tomography images with coronal and sagittal reformatted images were created and reviewed COMPARISON: No exams were available for comparison FINDINGS: There are no skull fractures. There is no fluid in the visualized paranasal sinuses. Retention cysts are noted in the upper aspects of both maxillary sinuses., larger on the right side. There is no evidence of intracranial hemorrhage, mass effect, or shift of midline structures. There are no extra-axial fluid collections. The ventricles are not enlarged or shifted and there is no blo od within the ventricular system nor within the basal cisterns. IMPRESSION: No acute intracranial findings on this noninfused CT scan of the brain. Retention cysts noted in both maxillary sinuses. RADIATION DOSE DELIVERED: 725.51mGy.cm Total DLP DATA REPOSITORY: All CT scans at this facility are submitted to the National Radiology Data Registry (NRDR) Dose Index Registry (DIR) with the [employer] ([employer]). RADIATION OPTIMIZATION: All CT scans at this facility use at least one of these dose optimization te chniques: automated exposure control; mA and/or kV adjustment per patient size (includes targeted exa ms where dose is matched to clinical indication); or iterative reconstruction.
[2022-05-17] MEDS: Ketorolac 15 MG/ML VIAL IVP ×5 (00:09→23:47)
[2022-05-17 00:32] LABS: Source Nasal/Nares
[2022-05-17 01:14] LABS: COVID-19 PCR Negative (Negative)
[2022-05-17] MEDS: oxyCODONE 5 MG TAB PO ×2 (03:58→22:06)
[2022-05-17] MEDS: ACETAMINOPHEN 1,000 MG/100 ML BTL 400 MG IVPB ×3 (03:59→15:00)
[2022-05-17] MEDS: PIPERACILLIN/TAZO 3.375 GM in Normal Saline 50 ML IVPB ×4 (04:05→23:48)
[2022-05-17 04:37] LABS: Abs Immature Grans 0.12 10^3/uL (0.0-0.06); Absolute Lymphocyte Count 0.68 10^3/uL (1.2-3.4); Absolute Neutrophil Count 18.35 10^3/uL (1.2-6.7); Basophils % 0.2; HCT 41.3 % (40.0-50.0); HGB 13.5 g/dL (13.5-17.5); Immature Grans % 0.6; Lymphocytes % 3.3; MCH 29.2 pg (27.0-33.0); MCHC 32.7 % (32.0-36.0); MCV 89 fL (80-95); MPV 9.9 fL (8.0-11.0); Monocytes % 6.1; Neutrophils % 88.8; Platelet Count 188 10^3/uL (130-400); RBC 4.62 10^6/uL (4.36-5.78); RDW 12.6 % (11.8-14.1); RDW-SD 41.4 fL; WBC 20.67 10^3/uL (4.4-10.8)
[2022-05-17 04:39] LABS: Absolute Basophil Count 0.04 10^3/uL (0.0-0.2); Absolute Eosinophil Count 0.21 10^3/uL (0.0-0.7); Absolute Monocyte Count 1.26 10^3/uL (0.1-0.8)
[2022-05-17] MEDS: MORPHine 2 MG/ML SYR IVP ×2 (04:55→11:07)
[2022-05-17] MEDS: Methocarbamol 750 MG TAB PO ×3 (08:16→19:35)
[2022-05-17] MEDS: Polyethylene Glycol 3350 17 GM PACKET PO (08:20)
[2022-05-17] MEDS: Normal Saline Flush 10 ML SYR IVP ×5 (10:15→23:47)
[2022-05-17] MEDS: Normal Saline 500 ML 80 ML IV (10:15)
--- NOTE | 2022-05-17 10:55 | W.PM.PROGNOT ---
Date of Service Date of service: 05/17/22 Time of Service: 10:56 Assessment and Plan Assessment and plan (1) Acute appendicitis: Status: Acute Assessment and plan: Tj is POD #2 s/p laparoscopic appendectomyi for a necrotic appendix. Continued elevated WBC, blood cultures were drawn last night. Currently on Zosyn Regular diet LAURYN drain with serosaginous drainage Activity- up and walking as much as possible Will d/c IV fluids, given adequate PO intake DVT prophilaxis- SCD's and LOvenox (+) BMs, diarrhea and dark. hemeoccult negative Headaches continue, spoke with Dr. Lange whom recommends Topomax Continue with IV antibiotics, increasing PO intake and improving headaches complaints. I saw and examined Tj, and I agree with Nimo's notes. Unfortunately, his headache is still quite a bit. He has been able to tolerate some breakfast and lunch today. Out of bed for just a short time likely because of the headache, he just got a dose of Topamax, and we can see how he responds. At this point, I do not see any focal neurologic findings concerning for more severe pathology. However, I do think it is prudent to check a head CT to rule out intracranial hemorrhage as a source of this (2) Leukocytosis: Status: Acute Subjective Subjective Interval history since last seen: Arrive with Tj resting in bed. He states that his headache is returning. He describes initially feeling much better this morning and was able to have a BM and eat some breakfast. He describes having constant, dull abdominal pain at this time. Exam Const General: cooperative and in distress mild Orientation: alert and oriented x3 Other: Eyes closed secondary to headache. Resp Effort & Inspection: normal respiratory effort, no audible wheezes and no cough GI Inspection: normal to inspection Palpation: soft, no guarding and nontender Auscultation: normal bowel sounds Other: LAURYN drain with serosanginous fluid. Objective Last Vital Signs Temp 37.6 C H 05/17/22 07:11 Pulse 77 05/17/22 07:11 Resp 16 05/17/22 07:11 BP 137/66 05/17/22 07:11 Pulse Ox 98 05/17/22 07:11 Laboratory Results - last 24 hr 05/17/22 05/17/22 00:15 04:10 WBC 20.67 H RBC 4.62 Hgb 13.5 Hct 41.3 MCV 89 MCH 29.2 MCHC 32.7 RDW 12.6 Plt Count 188 MPV 9.9 Immature Gran % 0.6 Neutrophils % 88.8 Lymphocytes % 3.3 Monocytes % 6.1 Eosinophils % 1.0 Basophils % 0.2 Nucleated RBC % 0.0 Absolute Neutrophils 18.35 H Absolute Lymphocytes 0.68 L Absolute Monocytes 1.26 H Absolute Eosinophils 0.21 Absolute Basophils 0.04 COVID-19 Source Nasal/Nares SARS-CoV-2 (PCR) Negative Time Spent with Patient Time Spent with Patient: 25-34 minutes Time was spent: preparing to see the patient(eg.review tests), ordering medications,tests, procedures and counseling the patient
--- NOTE | 2022-05-17 11:26 | PDOC.CMPRO ---
- If Service Date Differs Date of service: 05/17/22 Time of Service: 11:26 Care Management Progress Note S/O:Tj slept much of the day today. He has been febrile with temperatures over 39 degrees C all day. He has had a bad headache and generally feels unwell. A CT of the head was ordered and completed to rule out any iintracranial pathology. At baseline Tj is very active and exercises regularly so he has been trying to remain mobile. He has been walking in the [place] when he can and resting in between. A: Tj is a 36 year old man admitted on 05/15/22 with appendicitis P:Expect Tj will discharge home with no new services unless he requires home health nursing for dressing changes. He will follow up with his surgeon and plan of care and transport with a friend. CM will follow and assess for discharge needs.
[2022-05-17] MEDS: Topiramate 100 MG TAB 50 MG PO (12:28)
--- NOTE | 2022-05-17 12:58 | W.MEDCONSULT ---
Date of service: 05/17/22 Time of Service: 12:59 Assessment and Plan Assessment and plan (1) Acute appendicitis: Status: Acute Assessment and plan: POD #2 s/p laparoscopic appendectomyi for a necrotic appendix. Surgery managing. Will hold morphine at this time in event this is contributing to headache now; possible rebound or directly, in part at least, d/t morphine. On Zosyn. WBC count remains elevated. Cxs pending. Tolerating diet. LAURYN drain with serosaginous drainage Activity- up and walking as much as possible Surgery has d/c'd IV fluids; intake is good / encouraged. DVT prophilaxis- SCD's and LOvenox (+) BMs, diarrhea and dark. hemoccult negative (2) Leukocytosis: Status: Acute Assessment and plan: As above. (3) Headache: Status: Acute Assessment and plan: Unclear etiology; initially likely post-op, lack of sleep, no oral intake for 36+ hours, pain med related. Resolved then returned. Topamax 50mg po given x 1; monitor for results. Cont prn Ketoralax. Hold morphine. History of Present Illness History of Present Illness Chief Complaint: Headache. Narrative: This is a 36 yo male with no significant PMH who is POD #2 after laparoscopic appendectomy for necrotic appendix. He developed a headache post-operatively that began in the occipital area and then also inclused the crown of his head. Throbbing in nature. No N/V. No fever. He has taken IV morphine and ketoralac prn for both the post-op abd pain and the headache. When I first evaluated him early this AM his headache had resolved. He reports he had slept some and ate a breakfast. However, several hours later the headache returned. Review of Systems All systems reviewed & are unremarkable except as noted in HPI and below PFSH All Active Problems (Updated 05/17/22 @ 13:08 by Alex Lange MD) Headache (Acute) Leukocytosis (Acute) Acute appendicitis (Acute) Low sperm motility (Acute) Social History Smoking/Tobacco Use Status: Never Smoking risk assessment performed?: Yes Alcohol Intake: never Drug use: Never Substance use type: does not use Do you feel safe at home: Yes Do you feel safe in your relationship?: Yes Exam Narrative Exam Narrative: Sitting up in bed eating breakfast initially. Later, when PRESCOTT had returned he was lying with eyes closed but not asleep. Const General: cooperative and in distress mild Orientation: alert and oriented x3 Other: Eyes closed secondary to headache. Eyes General: appearance normal, both eyes and all related structures Sclera: sclerae normal Resp Effort & Inspection: normal respiratory effort, no audible wheezes, no cough and not labored Auscultation: clear to auscultation bilaterally Cardio Rate: regular rate Rhythm: regular rhythm GI Inspection: normal to inspection Palpation: soft, no guarding and nontender Auscultation: normal bowel sounds Other: LAURYN drain with serosanginous fluid. Neuro General: no focal motor deficits Cranial Nerves: facial strength normal Cognition: normal cognition Speech: speech normal Extrem General: no pedal edema and no calf tenderness Results Last Vital Signs Temp 37.6 C H 05/17/22 07:11 Pulse 77 05/17/22 07:11 Resp 16 05/17/22 07:11 BP 137/66 05/17/22 07:11 Pulse Ox 98 05/17/22 07:11 Labs 05/17/22 04:10 05/15/22 16:57 Labs: Laboratory Results - last 24 hr 05/17/22 05/17/22 00:15 04:10 WBC 20.67 H RBC 4.62 Hgb 13.5 Hct 41.3 MCV 89 MCH 29.2 MCHC 32.7 RDW 12.6 Plt Count 188 MPV 9.9 Immature Gran % 0.6 Neutrophils % 88.8 Lymphocytes % 3.3 Monocytes % 6.1 Eosinophils % 1.0 Basophils % 0.2 Nucleated RBC % 0.0 Absolute Neutrophils 18.35 H Absolute Lymphocytes 0.68 L Absolute Monocytes 1.26 H Absolute Eosinophils 0.21 Absolute Basophils 0.04 COVID-19 Source Nasal/Nares SARS-CoV-2 (PCR) Negative
[2022-05-17] MEDS: Acetaminophen 325 MG TAB 650 MG PO (17:07)
[2022-05-17] MEDS: Prochlorperazine 10 MG/2 ML VIAL IVP ×2 (17:53→22:07)
[2022-05-17] MEDS: Enoxaparin 40 MG/0.4 ML SYR SC (21:24)
[2022-05-18 03:23] VITALS: BP 137/68; PULSE 105; RESP 20; TEMP 38.4; O2SAT 95
[2022-05-18 03:35] VITALS: TEMP 38.4
[2022-05-18] MEDS: Acetaminophen 325 MG TAB 650 MG PO ×2 (03:35→15:56)
[2022-05-18] MEDS: Ketorolac 15 MG/ML VIAL IVP ×4 (05:23→23:27)
[2022-05-18] MEDS: PIPERACILLIN/TAZO 3.375 GM in Normal Saline 50 ML IVPB ×4 (05:25→23:28)
[2022-05-18 07:16] LABS: Abs Immature Grans 0.07 10^3/uL (0.0-0.06); Absolute Monocyte Count 1.12 10^3/uL (0.1-0.8); Basophils % 0.1; Eosinophils % 1.6; HCT 37.9 % (40.0-50.0); HGB 12.4 g/dL (13.5-17.5); Immature Grans % 0.5; Lymphocytes % 5.3; MCH 28.8 pg (27.0-33.0); MCHC 32.7 % (32.0-36.0); MCV 88 fL (80-95); MPV 9.7 fL (8.0-11.0); Neutrophils % 84.5; Platelet Count 191 10^3/uL (130-400); RDW 12.7 % (11.8-14.1); RDW-SD 41.1 fL; WBC 14.03 10^3/uL (4.4-10.8)
[2022-05-18 07:17] VITALS: BP 138/70; PULSE 89; RESP 16; TEMP 37.2; O2SAT 98
[2022-05-18 07:17] LABS: Absolute Basophil Count 0.01 10^3/uL (0.0-0.2); Absolute Eosinophil Count 0.22 10^3/uL (0.0-0.7); Absolute Lymphocyte Count 0.74 10^3/uL (1.2-3.4); Absolute Neutrophil Count 11.86 10^3/uL (1.2-6.7)
[2022-05-18] MEDS: Normal Saline Flush 10 ML SYR IVP ×2 (07:24→23:27)
[2022-05-18] MEDS: Methocarbamol 750 MG TAB PO ×2 (07:24→19:41)
[2022-05-18 07:32] LABS: ALT 25 U/L (16-63); AST 14 U/L (15-37); Albumin 2.3 g/dL (3.4-5.0); Alkaline Phosphatase 58 U/L (46-116); Anion Gap 6.5 mmol/L (3-11); BUN 9 mg/dL (7-18); Bilirubin, Total 0.4 mg/dL (0.2-1.0); CO2 28.5 mmol/L (21.0-32.0); CREATININE 1.1 mg/dL (0.70-1.30); Calcium 8.6 mg/dL (8.5-10.1); Chloride 104 mmol/L (98-107); Estimated GFR 88.67 (mL/min/1.73m2); Glucose 102 mg/dL (74-106); Potassium 3.6 mmol/L (3.5-5.1); Sodium 139 mmol/L (136-145); Total Protein 6.3 g/dL (6.4-8.2)
--- NOTE | 2022-05-18 10:44 | NCONE_ITS ---
Date of service: 05/18/22 Time of Service: 10:15 Assessment and Plan Assessment and plan (1) Headache: Status: Acute Assessment and plan: Mr. Shukla s/p appendectomy on 05/15/22 with ongoing headaches post-operatively in the setting of ongoing fever, infection/inflammation with persistent leukocytosis. Afebrile this am for first time and no headaches thus far today. Thus, PRESCOTT likely correlating with fever. He had a normal CTH and has no signs of meningismous. If headache returns, discussed using combo of ketorolac 30mg+compazine 10mg q8hr prn as these have been the most effective for him. Can also use doxepin 50mg q4hr and HS prn headache or insomnia. ADRs discussed with him. He is no interested in ONB at this time. I will check in on him later today. History of Present Illness History of Present Illness Chief Complaint: headache Narrative: Handedness: right. Mr. Shukla is a healthy 36 year-old admitted on 05/15/22 for acute appendicitis who underwent appendectomy that day. Since surgery, he has had near continuous headache alternating in position: occipital, frontal, top of head. He has been persistently febrile until this am and has actually not had a headache thus far today. He continues to have a leukocytosis, though it is trending down. He is on pip/tazo. He sleep for the first time last night s/p Lunesta, otherwise had not been sleeping well. Prior to hospitalization, he would get only infrequent headaches. Treatments that have not worked thus far: APAP, morphine, Topamax He feels Compazine has been the most effect. Toradol he isn't sure about but would sleep after, so likely it was doing something. -CTH (05/17/22): unremarkable. I reviewed these images personally and this is my personal interpretation. Review of Systems All systems reviewed & are unremarkable except as noted in HPI and below PFSH All Active Problems (Updated 05/17/22 @ 13:08 by Alex Lange MD) Headache (Acute) Leukocytosis (Acute) Acute appendicitis (Acute) Low sperm motility (Acute) Social History Smoking/Tobacco Use Status: Never Smoking risk assessment performed?: Yes Alcohol Intake: never Drug use: Never Substance use type: does not use Do you feel safe at home: Yes Do you feel safe in your relationship?: Yes Visit Medication and Allergies Active Medications Generic Name Dose Route Start Last Admin Trade Name Freq PRN Reason Stop Dose Admin Acetaminophen 650 mg 05/17/22 16:19 05/18/22 03:35 Acetaminophen 325 Mg Tab PO 650 mg Q6H PRN PRN Administration Enoxaparin Sodium 40 mg 05/16/22 22:00 05/17/22 21:24 Enoxaparin 40 Mg/0.4 Ml Syr SC 40 mg Q24H SANDRA Administration Eszopiclone 2 mg 05/17/22 22:00 05/17/22 21:24 Eszopiclone 2 Mg Tab PO 2 mg HS SANDRA Administration Sodium Chloride 500 mls @ 0 mls/hr 05/15/22 22:04 05/17/22 21:54 Saline 500ml Bag IV Infused PRN PRN Infusion As Directed Piperacillin Sod/Tazobactam 50 mls @ 12.5 mls/hr 05/18/22 00:00 05/18/22 05:25 Sod 3.375 gm/ Sodium Chloride IVPB 12.5 mls/hr Q6H SANDRA Administration Protocol IV Miscellaneous Supplies 1 each 05/15/22 22:15 Iv Access IV DIRECTED [facility] Ketorolac Tromethamine 15 mg 05/16/22 00:00 05/18/22 05:23 Ketorolac 15 Mg/Ml Vial IVP 05/21/22 00:00 15 mg Q6H SANDRA Administration Methocarbamol 750 mg 05/16/22 08:30 05/18/22 07:24 Methocarbamol 750 Mg Tab PO 750 mg TID SANDRA Administration Morphine Sulfate 2 mg 05/15/22 22:04 05/17/22 11:07 Morphine 2 Mg/Ml Syr IVP 2 mg Q1H PRN PRN Administration Ondansetron HCl 4 mg 05/15/22 22:04 Ondansetron 4 Mg/2 Ml Vial IVP Q4H PRN PRN Oxycodone HCl 5 mg 05/15/22 22:07 05/17/22 22:06 Oxycodone 5 Mg Tab PO 5 mg Q4H PRN PRN Administration Polyethylene Glycol 17 gm 05/16/22 08:30 05/18/22 09:03 Polyethylene Glycol 3350 17 Gm Packet PO Not Given DAILY SANDRA Prochlorperazine Edisylate 10 mg 05/17/22 19:32 05/17/22 22:07 Prochlorperazine 10 Mg/2 Ml Vial IVP 10 mg Q6H PRN PRN Administration Headache Sodium Chloride 0 ml 05/15/22 22:04 05/18/22 07:24 Normal Saline Flush 10 Ml Syr IVP 10 ml PRN PRN Administration Allergies No Known Allergies Allergy (Unverified 05/15/22 16:49) Exam Narrative Exam Narrative: Physical Exam: Gen: Patient of apparent stated age, NAD, sleepy Head and face: no facial or cranial abnormalities Neck: Supple, no meningismus, no occipital tenderness CV: + S1, S2, RRR, no murmur Resp: CTA B/L Abd: soft, nontender, nondistended Ext: No edema. No clubbing or cyanosis. No bony deformity. Neuro Exam: Language: fluency, naming, repetition, and comprehension intact; Mental Status: AAOx3, current events intact, fund of knowledge intact; Speech: no dysarthria Cranial nerves: Funduscopy: not performed CN II: visual collier intact CN III, IV, : extraocular movements intact, no nystagmus, pupils symmetric and reactive to light CN V: face sensation intact to LT and temp CN VII: no facial asymmetry noted CN VIII: hearing intact bilaterally CN IX, X: palate rises symmetrically CN XI: trapezius/SCM 5/5 bilaterally CN XII: protrudes tongue symmetrically Sensory: intact to LT, temp, vibration, and joint position in all extremities Motor: bulk and tone intact. Fine motor movements intact bilaterally. No pronator drift. Strength 5/5 throughout including the deltoids, biceps, triceps, wrist extensors, hip flexors, knee flexors, knee extensors, ankle flexors, and ankle extensors. Reflexes: hyporeflexic throughout; toes down going bilaterally; Coordination: FTN and HTS intact bilaterally Gait: not tested Results Last Vital Signs Temp 99.0 F 05/18/22 07:17 Pulse 89 05/18/22 07:17 Resp 16 05/18/22 07:17 BP 138/70 05/18/22 07:17 Pulse Ox 98 05/18/22 07:17 Labs 05/18/22 06:50 05/18/22 06:50 Labs: Laboratory Results - last 24 hr 05/18/22 05/18/22 06:50 06:50 WBC 14.03 H RBC 4.30 L Hgb 12.4 L Hct 37.9 L MCV 88 MCH 28.8 MCHC 32.7 RDW 12.7 Plt Count 191 MPV 9.7 Immature Gran % 0.5 Neutrophils % 84.5 Lymphocytes % 5.3 Monocytes % 8.0 Eosinophils % 1.6 Basophils % 0.1 Nucleated RBC % 0.0 Absolute Neutrophils 11.86 H Absolute Lymphocytes 0.74 L Absolute Monocytes 1.12 H Absolute Eosinophils 0.22 Absolute Basophils 0.01 Sodium 139 Potassium 3.6 Chloride 104 Carbon Dioxide 28.5 Anion Gap 6.5 BUN 9 Creatinine 1.1 Est GFR (CKD-EPI 2020) 88.67 Glucose 102 Calcium 8.6 Total Bilirubin 0.4 AST 14 L ALT 25 Alkaline Phosphatase 58 Total Protein 6.3 L Albumin 2.3 L
--- NOTE | 2022-05-18 11:42 | PDOC.CMPRO ---
- If Service Date Differs Date of service: 05/18/22 Time of Service: 11:43 Care Management Progress Note S/O:For the first time since surgery, Tj woke up without a headache today. He was given a sleep aide last night and, per report, slept well. He continues to ambulate in the halls and is showing some improvement. His temperature was normal this morning and his WBC is coming down, although it remains elevated at 14. Dr. Camara saw Tj this morning and made some medication recommendations to use if his headache returns. When CM met with Tj, he stated that he is feeling much better. He shared that his headache and fever are gone and that makes a big difference in how he feels. He reported that the surgeon informed him that he may be able to discharge home as soon as tomorrow if he continues to improve. A: Tj is a 36 year old man admitted on 05/15/22 with appendicitis P:Expect Tj will discharge home with no new services unless he requires home health nursing for dressing changes. He will follow up with his surgeon and plan of care and transport with a friend. CM will follow and assess for discharge needs.
[2022-05-18 15:18] VITALS: BP 153/78; PULSE 110; RESP 16; TEMP 38.3; O2SAT 98
[2022-05-18] MEDS: Prochlorperazine 10 MG/2 ML VIAL IVP (17:11)
[2022-05-18 17:50] VITALS: TEMP 37.3
[2022-05-18] MEDS: Enoxaparin 40 MG/0.4 ML SYR SC (21:31)
[2022-05-18 22:46] VITALS: BP 121/72; PULSE 81; RESP 18; TEMP 37.1; O2SAT 97
[2022-05-19] MEDS: Acetaminophen 325 MG TAB 650 MG PO ×3 (04:22→20:35)
[2022-05-19 07:48] VITALS: BP 116/69; PULSE 75; RESP 16; TEMP 36.2; O2SAT 96
[2022-05-19] MEDS: PIPERACILLIN/TAZO 3.375 GM in Normal Saline 50 ML IVPB ×4 (08:54→23:59)
--- NOTE | 2022-05-19 09:52 | PGE_ITS ---
Date of Service Date of service: 05/19/22 Time of Service: 09:53 Assessment and Plan Assessment and plan (1) S/P appendectomy: Assessment and plan: Patient is postop day 4. He has had no fevers or headache since 3:30 PM yesterday. I would like him to be fever free for 24 hours before we send him home. He is tolerating a regular diet. We will start him on yogurt daily and probiotics for the loose stools. Continue walking We talked about wound care and what he could expect and the importance of not doing any weight training for the next 2 weeks until his incision is completely healed to avoid hernia Plan discharge in a.m., provided he continues to stay afebrile. WBC was normal. (2) Leukocytosis: Status: Acute (3) Headache: Status: Acute Subjective Subjective Interval history since last seen: Pt is doing well. no headaches or fevers since 3:3 12.. No CP or SOB. no productive cough. no dysuria. no leg pain or swelling. He has had minimal serous output from drain. This was removed today. He is tolerating regular diet. He had x3 liquid bowel movements yesterday. He had x1 soft bowel movement today. Will make sure that he is on yogurt daily. He is up walking around. Exam Const General: cooperative, comfortable and no acute distress Other: Lungs are clear to auscultation bilaterally Heart is regular rate and rhythm Abdomen is soft with good bowel sounds. Incisions are clean dry and intact. Drain is serous and removed. Lower extremities show no edema, pain or swelling. Objective Last Vital Signs Temp 36.2 C L 05/19/22 07:48 Pulse 75 05/19/22 07:48 Resp 16 05/19/22 07:48 BP 116/69 05/19/22 07:48 Pulse Ox 96 05/19/22 07:48 Time Spent with Patient Time Spent with Patient: <25 minutes Time was spent: preparing to see the patient(eg.review tests), obtaining and/or reviewing separately otained hiistory, ordering medications,tests, procedures, referring, communicating with other health long term care social worker, indepentently interpreting results, counseling the patient and care coordination
[2022-05-19 11:08] LABS: Abs Immature Grans 0.03 10^3/uL (0.0-0.06); Absolute Basophil Count 0.01 10^3/uL (0.0-0.2); Absolute Eosinophil Count 0.39 10^3/uL (0.0-0.7); Absolute Lymphocyte Count 0.56 10^3/uL (1.2-3.4); Absolute Monocyte Count 0.79 10^3/uL (0.1-0.8); Absolute Neutrophil Count 7.03 10^3/uL (1.2-6.7); Basophils % 0.1; Eosinophils % 4.4; HGB 12.3 g/dL (13.5-17.5); Immature Grans % 0.3; Lymphocytes % 6.4; MCH 29.1 pg (27.0-33.0); MCHC 33.2 % (32.0-36.0); MCV 88 fL (80-95); MPV 9.6 fL (8.0-11.0); Neutrophils % 79.8; Platelet Count 218 10^3/uL (130-400); RBC 4.22 10^6/uL (4.36-5.78); RDW 12.7 % (11.8-14.1); RDW-SD 41.1 fL; WBC 8.81 10^3/uL (4.4-10.8)
--- NOTE | 2022-05-19 11:49 | PGE_ITS ---
Date of Service Date of service: 05/19/22 Time of Service: 12:45 Assessment and Plan Assessment and plan (1) Headache: Status: Acute Assessment and plan: Mr. Shukla s/p appendectomy on 05/15/22 with ongoing headaches post-operatively in the setting of ongoing fever, infection/inflammation with persistent leukocytosis. Headaches seem to correlate with fever and currently headache free. If headache returns, discussed using combo of ketorolac 15-30mg+compazine 10mg q8hr prn. Can also use doxepin 50mg q4hr and HS prn headache or insomnia. ADRs discussed with him. I will sign off at this time. Please call with any further questions or concerns. Subjective Subjective Interval history since last seen: Afebrile since yesterday afternoon. WBC down to 8.81. APAP 650mg at ~422am. Last Toradol 15mg dose yesterday at ~2330. Yesterday received 15mg Toradol + Compazine 10mg for headache. He doesn't remember if this was helpful or not Did not use doxepin. No headache since yesterday. Exam Narrative Exam Narrative: Physical Exam: Constitutional: Patient of apparent stated age, well nourished, well developed, no acute distress Neuro: MS/Language/Speech: Alert, oriented, clear language (fluency and comprehension), no dysarthria CN: EOMI, no facial asymmetry, hearing intact Motor: Normal bulk and tone. 5/5 strength in bilateral upper and lower extremities Coordination: Finger to nose performed without dysmetria Objective Last Vital Signs Temp 97.2 F L 05/19/22 07:48 Pulse 75 05/19/22 07:48 Resp 16 05/19/22 07:48 BP 116/69 05/19/22 07:48 Pulse Ox 96 05/19/22 07:48 Laboratory Results - last 24 hr 05/19/22 06:10 WBC 8.81 RBC 4.22 L Hgb 12.3 L Hct 37.0 L MCV 88 MCH 29.1 MCHC 33.2 RDW 12.7 Plt Count 218 MPV 9.6 Immature Gran % 0.3 Neutrophils % 79.8 Lymphocytes % 6.4 Monocytes % 9.0 Eosinophils % 4.4 Basophils % 0.1 Nucleated RBC % 0.0 Absolute Neutrophils 7.03 H Absolute Lymphocytes 0.56 L Absolute Monocytes 0.79 Absolute Eosinophils 0.39 Absolute Basophils 0.01 Time Spent with Patient Time Spent with Patient: <25 minutes Time was spent: preparing to see the patient(eg.review tests), referring, communicating with other health neonatal critical care nurse, indepentently interpreting results and counseling the patient
[2022-05-19] MEDS: Methocarbamol 750 MG TAB PO ×2 (13:42→20:35)
[2022-05-19 14:52] VITALS: BP 129/70; PULSE 89; RESP 16; TEMP 38; O2SAT 95
[2022-05-19 14:54] VITALS: TEMP 38
--- NOTE | 2022-05-19 15:38 | PDOC.CMPRO ---
- If Service Date Differs Date of service: 05/19/22 Time of Service: 15:38 Care Management Progress Note S/O: Tj was lying in bed when CM met with her. He stated that he is having a good day today- he hasn't had any headaches or fevers today, and he reported that per MD, his WBC is back within a normal range. He also reported that he feels he is getting closer to discharge ready. He remains on IV medications, and is not medically cleared for discharge today. He stated that he is independent at baseline, and is looking forward to returning home, but he is willing to stay until the MD feels he is ready. CM will continue to follow. A: Tj is a 36 year old man admitted on 05/15/22 with appendicitis P:Expect Tj will discharge home with no new services unless he requires home health nursing for dressing changes. He will follow up with his surgeon and plan of care and transport with a friend. CM will follow and assess for discharge needs.
[2022-05-19 15:54] VITALS: TEMP 37.3
[2022-05-19 16:10] VITALS: TEMP 37.6
[2022-05-19] MEDS: Ketorolac 15 MG/ML VIAL IVP ×2 (18:04→23:59)
[2022-05-19] MEDS: Enoxaparin 40 MG/0.4 ML SYR SC (20:35)
[2022-05-19 23:13] VITALS: BP 118/68; PULSE 77; RESP 16; TEMP 36.1; O2SAT 98
[2022-05-20] MEDS: Prochlorperazine 10 MG/2 ML VIAL IVP (04:40)
[2022-05-20] MEDS: Ketorolac 15 MG/ML VIAL IVP (05:55)
[2022-05-20] MEDS: PIPERACILLIN/TAZO 3.375 GM in Normal Saline 50 ML IVPB (05:55)
[2022-05-20 06:47] VITALS: BP 120/72; PULSE 72; RESP 16; TEMP 36.3; O2SAT 98
[2022-05-20] MEDS: Methocarbamol 750 MG TAB PO ×2 (08:03→14:54)
--- NOTE | 2022-05-20 13:32 | W.PM.DS.N ---
Date of service: 05/20/22 Time of Service: 13:39 DS: Diagnosis Discharge Diagnosis (1) Headache: Status: Acute Discharge Plan Disposition Condition: Stable Condition: Improving Discharge Details Reason For Visit: Acute Appendicitis Admit Date/Time: 05/15/22 22:04 Admit Provider: Ryann Shook Attending Provider: Ryann Shook Primary Care Provider: Venancio Mandel Hospital Course Hospital Course: see addendum Home Meds and New Rx's Prescriptions: No Action finasteride 1 mg Tablet 1 mg PO DAILY Discharge Instructions Additional Instructions: Keep an ice bag on the incision. 20 minutes on and 20 minutes off. Ice keeps the swelling down and swelling causes pain. Make sure you wrap the ice pack in a towel and don't apply directly to the skin. -No driving for 24 days or of you are taking narcotic pain medications. -If you have rupa or sutures in place, they will be removed at your clinic appointment in 7-10 days. [facility] Surgery Clinic: [phone] -Follow-up with Dr. Shook in May 10 9am -regular diet. Yogurt/Kombucha daily. Bowels should return to normal in 2-3 days. -no straining to move bowels -pain meds are very constipating: if you do not move your bowels daily take a dose of OTC Miralax -It is ok to shower. No bathe, soaking, swimming or hot tubs -Keep wound clean and dry. Wash incision with soap and water daily. Pat dry, don't rub. -Protein supplements daily. You may find that your appetite is smaller. Eat 3-6 small meals throughout the day. It is important to drink lots of water after surgery, 6-10 glasses a day. -If you were given an incentive spirometry (breathing dimensional inspector?), continue to do this 10x/hour while awake. -We do want you up walking, at least 5-6 times per day. This is very important to prevent pneumonia and blood clots. You can climb stairs, take them slowly. -No lifting over 5 pounds for 2 weeks. This is very important to avoid developing a hernia in your incision. -You may find that you are very tired after surgery- this is normal. -please do not smoke for a minimum of 72 hours after surgery. Pain Plan MEDICATIONS: Alternate Tylenol 1000mg by mouth every 8 hours and Ibuprofen 600mg every 6 hours. ?Make sure you take ibuprofen with food and not on an empty stomach. ?Take the Tylenol and ibuprofen continuously for the first 72hrs- not just when you have pain.? Use the tramadol for breakthrough pain.? Use ICE!?? Twenty minutes on, and then 20 minsutes off. Stand Alone Forms: Nursing Discharge Form Activity:: see above Equipment/Supplies:: No Equipment Needed Diet:: As Tolerated DS: Summary Time Spent with Patient providing and/or coordinating discharge services: Less than 30 minutes Status at Discharge Functional status at discharge: independent ambulation Overall status at discharge: patient is progressing back to baseline Mental Status: mental status grossly normal Speech and Movement: speech and movement normal Mood: congruent mood Affect: normal affect Exam Psych Mental Status: mental status grossly normal Speech and Movement: speech and movement normal Mood: congruent mood Affect: normal affect DS: Data Vitals/I&O Vitals and I&O: Vital Signs Temperature 36.3 C L 05/20/22 06:47 Temperature Source Tympanic 05/20/22 06:47 Pulse 72 05/20/22 06:47 Pulse Rhythm Regular 05/20/22 08:06 Respiratory Rate 16 05/20/22 06:47 Respiratory Effort Normal 05/20/22 08:06 Respiratory Depth Normal 05/20/22 08:06 Respiratory Pattern Normal 05/20/22 08:06 Blood Pressure 120/72 05/20/22 06:47 Blood Pressure Mean 90 05/15/22 19:30 Blood Pressure Position Sitting 05/15/22 16:44 Pulse Oximetry 98 05/20/22 06:47 Respiratory End-tidal CO2 45 05/15/22 22:29 Oxygen Delivery Method Room Air 05/20/22 06:47 Oxygen Flow Rate 0 05/20/22 06:47 Pain Level 0 05/20/22 06:47 Comment afebrile after med administration 05/18/22 17:50 Intake & Output 05/19/22 05/20/22 05/20/22 23:59 11:59 23:59 Intake Total 100 / 1841.667 50 / 50 Balance 100 / -308.333 50 / 50 Intake: IV 100 / 236.667 50 / 50 Other: Urine Appearance Clear Clear Voiding Methods Toilet Data Completed and Pending Labs on day of discharge: Preliminary micro results at discharge 05/17/22 06:39 Blood Culture - Preliminary Blood NO GROWTH 72 HOURS 05/17/22 04:10 Blood Culture - Preliminary Blood NO GROWTH 72 HOURS PFSH All Active Problems (Updated 05/17/22 @ 13:08 by Alex Lange MD) Headache (Acute) Leukocytosis (Acute) Acute appendicitis (Acute) Low sperm motility (Acute) Surgical History (Updated 05/19/22 @ 14:55 by Ryann Shook DO) S/P appendectomy Open appendectomy for necrotic appendix Social History Smoking/Tobacco Use Status: Never Smoking risk assessment performed?: Yes Alcohol Intake: never Drug use: Never Substance use type: does not use Do you feel safe at home: Yes Do you feel safe in your relationship?: Yes Time Spent with Patient Time Spent with Patient: <45 minutes Time was spent: indepentently interpreting results, counseling the patient and care coordination
--- NOTE | 2022-05-20 14:12 | W.PM.DS.N ---
Date of service: 05/20/22 Time of Service: 14:18 DS: Diagnosis Discharge Diagnosis (1) Headache: Status: Acute Discharge Plan Disposition Patient Disposition: Home Condition: Improving Discharge Details Reason For Visit: Acute Appendicitis Admit Date/Time: 05/15/22 22:04 Admit Provider: Ryann Shook Attending Provider: Ryann Shook Primary Care Provider: Venancio Mandel Hospital Course Hospital Course: see addendum Home Meds and New Rx's Prescriptions: New methocarbamol 750 mg tablet 750 mg PO QID PRN (Reason: abdominal discomfort) Qty: 30 0RF ketorolac 10 mg tablet 10 mg PO QID PRN5 Days Qty: 20 0RF Continued finasteride 1 mg Tablet 1 mg PO DAILY Discharge Instructions Additional Instructions: Keep an ice bag on the incision. 20 minutes on and 20 minutes off. Ice keeps the swelling down and swelling causes pain. Make sure you wrap the ice pack in a towel and don't apply directly to the skin. -No driving for 24 days or of you are taking narcotic pain medications. -If you have rupa or sutures in place, they will be removed at your clinic appointment in 7-10 days. [facility] Surgery Clinic: [phone] -Follow-up with Dr. Shook in May 10 9am -regular diet. Yogurt/Kombucha daily. Bowels should return to normal in 2-3 days. -no straining to move bowels -pain meds are very constipating: if you do not move your bowels daily take a dose of OTC Miralax -It is ok to shower. No bathe, soaking, swimming or hot tubs -Keep wound clean and dry. Wash incision with soap and water daily. Pat dry, don't rub. -Protein supplements daily. You may find that your appetite is smaller. Eat 3-6 small meals throughout the day. It is important to drink lots of water after surgery, 6-10 glasses a day. -If you were given an incentive spirometry (breathing customer experience retail clerk?), continue to do this 10x/hour while awake. -We do want you up walking, at least 5-6 times per day. This is very important to prevent pneumonia and blood clots. You can climb stairs, take them slowly. -No lifting over 5 pounds for 2 weeks. This is very important to avoid developing a hernia in your incision. -You may find that you are very tired after surgery- this is normal. -please do not smoke for a minimum of 72 hours after surgery. Pain Plan MEDICATIONS: Alternate Tylenol 1000mg by mouth every 8 hours and Ibuprofen 600mg every 6 hours OR toradol. (Do not take these medications at the same time). ?Make sure you take ibuprofen with food and not on an empty stomach. ?Take the Tylenol and ibuprofen continuously for the first 72hrs- not just when you have pain.? ? Use ICE!?? Twenty minutes on, and then 20 minsutes off. You can also use robaxin for muscle spasms. This medication may make you sleepy. Stand Alone Forms: Nursing Discharge Form Activity:: see above Equipment/Supplies:: No Equipment Needed Diet:: As Tolerated Discharge Orders Discharge Orders: Discharge Order (Routine); Ordered 05/20/22 Ordered By: Ryann Shook DS: Summary Time Spent with Patient providing and/or coordinating discharge services: Less than 30 minutes Status at Discharge Functional status at discharge: independent ambulation Overall status at discharge: patient is progressing back to baseline Mental Status: mental status grossly normal Speech and Movement: speech and movement normal Mood: congruent mood Affect: normal affect Exam Psych Mental Status: mental status grossly normal Speech and Movement: speech and movement normal Mood: congruent mood Affect: normal affect DS: Data Vitals/I&O Vitals and I&O: Vital Signs Temperature 36.3 C L 05/20/22 06:47 Temperature Source Tympanic 05/20/22 06:47 Pulse 72 05/20/22 06:47 Pulse Rhythm Regular 05/20/22 08:06 Respiratory Rate 16 05/20/22 06:47 Respiratory Effort Normal 05/20/22 08:06 Respiratory Depth Normal 05/20/22 08:06 Respiratory Pattern Normal 05/20/22 08:06 Blood Pressure 120/72 05/20/22 06:47 Blood Pressure Mean 90 05/15/22 19:30 Blood Pressure Position Sitting 05/15/22 16:44 Pulse Oximetry 98 05/20/22 06:47 Respiratory End-tidal CO2 45 05/15/22 22:29 Oxygen Delivery Method Room Air 05/20/22 06:47 Oxygen Flow Rate 0 05/20/22 06:47 Pain Level 0 05/20/22 06:47 Comment afebrile after med administration 05/18/22 17:50 Intake & Output 05/19/22 05/20/22 05/20/22 23:59 11:59 23:59 Intake Total 100 / 1841.667 50 / 50 Balance 100 / -308.333 50 / 50 Intake: IV 100 / 236.667 50 / 50 Other: Urine Appearance Clear Clear Voiding Methods Toilet Data Completed and Pending Labs on day of discharge: Preliminary micro results at discharge 05/17/22 06:39 Blood Culture - Preliminary Blood NO GROWTH 72 HOURS 05/17/22 04:10 Blood Culture - Preliminary Blood NO GROWTH 72 HOURS PFSH All Active Problems (Updated 05/17/22 @ 13:08 by Alex Lange MD) Headache (Acute) Leukocytosis (Acute) Acute appendicitis (Acute) Low sperm motility (Acute) Surgical History (Updated 05/19/22 @ 14:55 by Ryann Shook DO) S/P appendectomy Open appendectomy for necrotic appendix Social History Smoking/Tobacco Use Status: Never Smoking risk assessment performed?: Yes Alcohol Intake: never Drug use: Never Substance use type: does not use Do you feel safe at home: Yes Do you feel safe in your relationship?: Yes Time Spent with Patient Time Spent with Patient: <45 minutes Time was spent: referring, communicating with other health intensive care unit registered nurse, counseling the patient and care coordination
[2022-05-20] MEDS: Acetaminophen 325 MG TAB 650 MG PO (14:53)
--- NOTE | 2022-05-20 18:33 | PDOC.CMDIS ---
- If Service Date Differs Date of service: 05/20/22 Time of Service: 18:33 LACE Index Scoring Tool - Questions: Length of Stay (in days): 4 - 6 Acuity (Admit via E.D.?): Yes E.D. Visits: 1 - Answers: Total Score: 8 Risk of Readmission: Low Risk Care Management Discharge Reason for Hospitalization: appendicitis Discharge Plan: Tj returned home today with no new services. He drove himself home via private vehicle. He will follow up with his PCP and discharge plan of care. He is happy to be going home. Patient/Family Education Needs: Review discharge instructions and limitations, discussion of self care needs including ask me three.
== END 2022-05-20 15:04 | disposition home or self-care (01) | DRG 343 ==
LOC: ER 18:59 → DSU 19:41 → MS 22:38
PROVIDERS: Surgery; Admitting Provider Surgery; Emergency Provider Student in an Organized Health Care Education/Training Program; PCP Physician Assistant; Visit Provider Surgery
PROC: 0DTJ4ZZ Resection of Appendix, Percutaneous Endoscopic Approach (ICD-10-PCS; CPT 44970; principal; 2022-05-15 20:00)
DX: K35.891 Other acute appendicitis without perforation, with gangrene (principal); D72.829 Elevated white blood cell count, unspecified; Z53.31 Laparoscopic surgical procedure converted to open procedure; K38.8 Other specified diseases of appendix; R50.9 Fever, unspecified; R51.9 Headache, unspecified
CPT/HCPCS: 44950; 36415; 80053; 83690; 86900; 86901; 87040; 87635; 96361; 96365; 99285; J1650; 70450; 74177; 81003; 81015; 85025; 86140; 88304; 99222; J0131; J0780; J1100; J1885; J2250; J2270; J2405; J2543; J2704; J3010; J3490; Q9967

== ENCOUNTER → 2022-10-04 21:17 | Outpatient (CLI) | payer SELFPAY ==
--- NOTE | 2022-10-04 | DI.RAD_ITS ---
Exam(s) XR ANKLE LT COMPLETE EXAM: XR ANKLE LT COMPLETE CLINICAL HISTORY: PAIN IN LEFT ANKLE--M25.572 TECHNIQUE: 2D digital imaging was performed. Three views. COMPARISON: No exams were available for comparison FINDINGS: BONES: Nondisplaced fracture extending obliquely through the lateral malleolus to the level of the an kle mortise. No bony destructive lesion is seen. Small plantar calcaneal spur. JOINTS:The ankle mortise is not widened. SOFT TISSUE: Swelling greater around lateral malleolus. IMPRESSION: Nondisplaced fracture lateral malleolus. No ankle mortise widening. DATA REPOSITORY: RADIATION DOSE DELIVERED:
== END ==
PROVIDERS: PCP Physician Assistant; Visit Provider Nurse Practitioner Family
DX: S82.64XD Nondisplaced fracture of lateral malleolus of right fibula, subsequent encounter for closed fracture with routine healing (principal); X58.XXXD Exposure to other specified factors, subsequent encounter
CPT/HCPCS: 73610

== ENCOUNTER 2022-10-07 10:55 | Outpatient (CLI) | payer SELFPAY ==
--- NOTE | 2022-10-07 11:36 | DI.RAD_ITS ---
Exam(s) XR ANKLE LT COMPLETE EXAM: XR ANKLE LT COMPLETE CLINICAL HISTORY: LEFT ANKLE INJURY TECHNIQUE: 2D digital imaging was performed of the left ankle. Five images were obtained. AP, late ral and oblique views were obtained. COMPARISON: CR XR ANKLE LT COMPLETE from 10/04/2022 FINDINGS: BONES: There has been no change in alignment of the distal left fibular fracture. No new fracture is seen. No bony destructive lesion is seen. JOINTS:The ankle mortise appears intact. SOFT TISSUE: There is soft tissue swelling about the ankle particularly laterally. IMPRESSION: Stable distal fibular fracture. DATA REPOSITORY: RADIATION DOSE DELIVERED:
== END 2022-10-07 10:56 | disposition home or self-care (01) ==
LOC: DIORS 10:56
PROVIDERS: PCP Physician Assistant; Visit Provider Student in an Organized Health Care Education/Training Program
DX: S82.64XD Nondisplaced fracture of lateral malleolus of right fibula, subsequent encounter for closed fracture with routine healing (principal); X58.XXXD Exposure to other specified factors, subsequent encounter
CPT/HCPCS: 73610

== ENCOUNTER 2022-10-14 11:37 | Outpatient (CLI) | payer SELFPAY ==
--- NOTE | 2022-10-14 11:30 | DI.RAD_ITS ---
Exam(s) XR ANKLE LT COMPLETE EXAM: XR ANKLE LT COMPLETE CLINICAL HISTORY: f/u L ANKLE FX TECHNIQUE: 2D digital imaging was performed of the left ankle. Five images were obtained. AP, late ral and oblique views were obtained. COMPARISON: CR XR ANKLE LT COMPLETE from 10/07/2022 FINDINGS: BONES: There has been no change in alignment of the distal left fibular fracture. No bony destructiv e lesion is seen. JOINTS:The alignment of the ankle joint is unchanged. There is mild widening of the medial joint spa ce. SOFT TISSUE: There is soft tissue swelling about the ankle. IMPRESSION: Stable alignment of the distal fibular fracture. DATA REPOSITORY: RADIATION DOSE DELIVERED:
== END 2022-10-14 11:38 | disposition home or self-care (01) ==
LOC: DIORS 11:38
PROVIDERS: PCP Physician Assistant; Referring Provider Physician Assistant; Visit Provider Student in an Organized Health Care Education/Training Program
DX: S82.62XD Displaced fracture of lateral malleolus of left fibula, subsequent encounter for closed fracture with routine healing (principal); X58.XXXD Exposure to other specified factors, subsequent encounter
CPT/HCPCS: 73610

== ENCOUNTER 2022-10-28 11:30 | Outpatient (CLI) | payer SELFPAY ==
--- NOTE | 2022-10-28 11:15 | DI.RAD_ITS ---
Exam(s) XR ANKLE LT COMPLETE EXAM: XR ANKLE LT COMPLETE CLINICAL HISTORY: F/U L ANKLE FX TECHNIQUE: 2D digital imaging was performed. Three views. COMPARISON: CR XR ANKLE LT COMPLETE from 10/14/2022 FINDINGS: There has been no change in the alignment of the distal fibular fracture. Soft tissue swelling has d ecreased from prior. Ankle mortise is not widened. DATA REPOSITORY: RADIATION DOSE DELIVERED:
== END 2022-10-28 11:31 | disposition home or self-care (01) ==
LOC: DIORS 11:30
PROVIDERS: PCP Physician Assistant; Referring Provider Physician Assistant; Visit Provider Student in an Organized Health Care Education/Training Program
DX: S82.62XD Displaced fracture of lateral malleolus of left fibula, subsequent encounter for closed fracture with routine healing (principal); X58.XXXD Exposure to other specified factors, subsequent encounter
CPT/HCPCS: 73610

== ENCOUNTER 2023-09-20 21:59 | Emergency (ER) | payer SELFPAY ==
--- NOTE | 2023-09-20 22:00 | DI.RAD_ITS ---
Exam(s) XR PORTABLE CHEST AP EXAM: XR PORTABLE CHEST AP CLINICAL HISTORY: fever, r/o pneumonia TECHNIQUE: 2D digital imaging was performed of the chest. One image was obtained. An AP view was ob tained. COMPARISON: No exams were available for comparison FINDINGS: MEDIASTINUM: Normal. HEART: Normal. PULMONARY VASCULATURE: Normal. LUNGS: Clear. PLEURAL SPACE: No pleural effusion or pneumothorax. BONE:Within normal limits for the patient's age. OTHER FINDINGS:Normal. IMPRESSION: No acute pulmonary findings. DATA REPOSITORY: RADIATION DOSE DELIVERED:
--- NOTE | 2023-09-20 22:00 | RT.EKG_ITS ---
APPROVED REPORT Exam: Resting ECG Reason for Exam: fever Patient Location: E HR:105 bpm ECG Measurements Heart Rate 105 AXIS MS 126 P 33 QRSd 77 QRS 52 QT 309 T 30 QTc 409 Conclusion Sinus tachycardia...rate> 99 Physician: no stemi
[2023-09-20 22:01] VITALS: BP 178/78; PULSE 100; RESP 22; TEMP 37.4; O2SAT 99
[2023-09-20 22:11] VITALS: BP 178/78; PULSE 106; RESP 22; TEMP 37.4; O2SAT 99
--- NOTE | 2023-09-20 22:15 | ED.GENADUL_ITS ---
Discharge Plan Disposition Patient Disposition: Home Condition: Good Discharge Details Clinical Impression: Pharyngitis, Fever Primary Care Provider: Venancio Mandel ED Provider: Suleiman Sanchez Home Meds and New Rx's Prescriptions: No Action methocarbamol 750 mg tablet 750 mg PO Q8H PRN (Reason: abdominal pain) Qty: 30 0RF finasteride 1 mg Tablet 1 mg PO DAILY Discharge Instructions Instructions: Fever, Adult ED Additional Instructions: At this time your workup shows no evidence of significant urinary tract infection, COVID, flu, or RSV. Your blood work has stabilized. It is likely that you have mild pharyngitis, or virus causing your symptoms at this stage. Your symptoms and exam do not show evidence of severe pneumonia, meningitis, or other life-threatening etiology at this time. However it is critical that you continue to monitor your symptoms closely. Please drink plenty of fluids and stay well-hydrated with electrolyte solutions. You can take 1000 mg of Tylenol every 6 hours and 800 mg of ibuprofen every 6 hours. These are the maximum doses. Use this as needed for fever control. Please continue to take the antibiotic that you are prescribed. You will be contacted if your tick and Lyme panel or blood cultures or throat culture returns positive. If you notice any worsening of your symptoms, or any new symptoms such as vomiting, diarrhea, fever, chills, shortness of breath, chest pain, numbness, weakness, or fainting , please return immediately to the emergency department for reevaluation. Please follow up with your primary care provider as soon as possible for reassessment and reevaluation. As always, it was a pleasure participating in your medical care today. If you do have any questions or concerns, please do not hesitate to reach out to me as I am on for the next 9 nights. I can be reached at [phone]. Referrals: Venancio Mandel [Primary Care Provider] - [facility] General Date/Time Provider Initiated Documentation: 09/20/23 22:13 . HPI Narrative: 37-year-old male with a past medical history of appendicitis and appendectomy, but no other significant past medical history who is otherwise healthy, and exercise regularly, presents today for evaluation of fever. Patient states that on Monday he had a very mild sore throat, he was tested at the urgent care today, but unfortunately I am not able to review the note and its completion however his rapid COVID and influenza were both negative. Strep test was negative but sent for culture. He was started on penicillin for concern for mild tonsillitis. While the sore throat started on Monday, chills started in the last 24 hours. He denies any cough,, urinary discomfort or frequency, he denies any vomiting or significant headache. He admits to continued mild sore throat, with mild anterior soreness, but no significant posterior neck pain. He denies any chest pain. He denies any vomiting diarrhea or abdominal pain. He denies any other complaints at this time. He did take Tylenol earlier today, and then again a few hours before arrival. With his continued chills and fever this evening he came in for further assessment. He denies any other complaints at this time. He denies any tick bites throughout the summer. Related Data Home Medications ?Medication ?Instructions ?Recorded ?Confirmed finasteride 1 mg tablet 1 mg PO DAILY 05/15/22 09/20/23 methocarbamol 750 mg tablet 750 mg PO Q8H PRN abdominal pain 05/20/22 09/20/23 #30 tabs Previous Rx's ?Medication ?Instructions ?Recorded methocarbamol 750 mg tablet 750 mg PO Q8H PRN abdominal pain 05/20/22 #30 tabs Allergies Allergy/AdvReac Type Severity Reaction Status Date / Time No Known Allergies Allergy Unverified 09/20/23 22:41 General Stated Complaint: Fever JARAD: 3 Review of Systems All systems reviewed & are unremarkable except as noted in HPI and below Exam Narrative Exam Narrative: 1.Const: Well-nourished, Well-developed, appearing stated age 2.Eyes: PERRL, no conjunctival injection, and symmetrical lids. 3.ENT: Atraumatic external nose and ears. Moist MM. Neck: Symmetric, trachea midline, No thyromegaly. Patient demonstrates good movement of cervical neck. There is no nuchal rigidity, no nuchal tenderness. Patient is able to flex the neck without any difficulty or significant pain. Negative Kernig's and Brudzinski sign. Minimal erythema in the posterior oropharynx, 1 or 2 small areas of exudate in the right tonsil. Great tympanic membrane, pearly in nature, no effusion on the right, mild cerumen in the left but no evidence of otitis media. No evidence of Ludewig's angina, throat swelling, or poor dentition 4.CVS: +S1/S2, No murmurs or gallops. Peripheral pulses 2+ and equal in all extremities. Brisk capillary refill in all extremities. 5.RESP: Unlabored respiratory effort. Clear to auscultation bilaterally. No wheezes rales or rhonchi 6.GI: Soft, Nontender/Nondistended, No hepatosplenomegaly. No guarding or rebound. No pain at McBurney's point, negative Castañeda sign. 7.MSK: Normocephalic/Atraumatic, Extremities w/o deformity or ttp No cyanosis or clubbing, Normal movement of all extremities 8.Skin: Warm, Dry. No rashes or lesions. 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 Sensation grossly intact, no focal neurol ogic deficits. 10.Psych: (AAO) x3. Appropriate mood and affect Course Vital Signs Vital signs: Vital Signs Temperature 37.4 C 09/20/23 22:01 Pulse 100 H 09/20/23 22:01 Respiratory Rate 22 09/20/23 22:01 Blood Pressure 178/78 H 09/20/23 22:01 Pulse Oximetry 99 09/20/23 22:01 Temperature 37.4 C 09/20/23 22:11 Temperature Source Oral 09/20/23 22:11 Pulse 106 H 09/20/23 22:11 Respiratory Rate 22 09/20/23 22:11 Respiratory Effort Normal, Non-Labored 09/20/23 22:08 Blood Pressure 178/78 H 09/20/23 22:11 Blood Pressure Position Supine 09/20/23 22:11 Pulse Oximetry 99 09/20/23 22:11 Oxygen Delivery Method Room Air 09/20/23 22:11 Oxygen Flow Rate 0 09/20/23 22:01 Pain Level 0 09/20/23 22:11 Medical Decision Making 37-year-old male with a past medical history of appendicitis and appendectomy, but no other significant past medical history who is otherwise healthy, and exercise regularly, presents today for evaluation of fever. Patient states that on Monday he had a very mild sore throat, he was tested at the urgent care today, but unfortunately I am not able to review the note and its completion however his rapid COVID and influenza were both negative. Strep test was negative but sent for culture. He was started on penicillin for concern for mild tonsillitis. While the sore throat started on Monday, chills started in the last 24 hours. He denies any cough,, urinary discomfort or frequency, he denies any vomiting or significant headache. He admits to continued mild sore throat, with mild anterior soreness, but no significant posterior neck pain. He denies any chest pain. He denies any vomiting diarrhea or abdominal pain. He denies any other complaints at this time. He did take Tylenol earlier today, and then again a few hours before arrival. With his continued chills and fever this evening he came in for further assessment. He denies any other complaints at this time. He denies any tick bites throughout the summer. Exam demonstrates well-appearing male, clear lungs, no nuchal rigidity or neck stiffness, nontender abdomen, no flank or CVA tenderness. No genital pain. Mild erythema in the posterior oropharynx with 1-2 small abnormalities on his tonsils. Certainly no significant tonsillar enlargement, tonsils are grade 1-2. No other concerning abnormalities on exam. Differential is highest for viral etiology, we will retest with PCR testing for COVID flu and RSV. Will test urine and get an x-ray of the lungs to evaluate for pneumonia, tick based etiology is of concern, however he does deny any tick bites. Myocarditis is low likelihood is he denies any IV or illicit drug use. Will get blood cultures, rehydrate, give Toradol for fever control, currently right now he is 103 Fahrenheit. Will give a liter of lactated Ringer's, monitor closely and reassess. EKG 22: 23 Sinus tachycardia, rate 105, no ST elevations or depressions. 12:37 AM On reassessment patient feels much better, he feels very comfortable and would like to go home. Blood pressure is normalized, heart rate stable at 106, temperature is improving, laboratory workup shows no white count of only very mild left shift, no bandemia. Initial lactate was 2.2, but this is improved after rehydration down to 1.1. Electrolytes normal, troponin normal, no evidence of myocarditis. Procalcitonin minimally elevated at 0.7, thyroid function normal, no evidence of thyrotoxicosis, transaminases normal, EKG benign, urinalysis negative for infection, COVID flu and RSV negative. Still pending tick and Lyme panel, as well as blood cultures, strep culture. I suspect mild pharyngitis which could be bacterial or viral. Will recommend continuing the penicillin. No clinical symptoms at this time to suggest meningitis. No indication for lumbar puncture. No neck stiffness or nuchal rigidity. No other concerning abnormality otherwise. Chest x-ray negative for evidence of pneumonia. Patient feels well. Patient will be discharged home. Discussed red flags for which to return. Patient at this time shows no evidence of septic shock. I have extensively reviewed the treatment plan and discharge instructions with the patient. I have addressed all patient concerns at this time. The patient was made aware of what symptoms to monitor for that would warrant a return to the emergency department. Discussed the plan with the patient, they demonstrate verbal understanding and agreement with our assessment and plan at this time. The documentation in this chart was dictated using [employer] dictation software. Please excuse any dictation errors. FINDINGS: Lungs: Unremarkable. No consolidation. Pleural spaces: Unremarkable. No pleural effusion. No pneumothorax. Heart/Mediastinum: Unremarkable. No cardiomegaly. Bones/joints: Unremarkable. IMPRESSION: No acute findings. Thank you for allowing us to participate in the care of your patient. Dictated and Authenticated by: Wilmer Benjamin MD 09/21/2023 12:57 AM Eastern Time ([place] & [place]) Quality:SDOH Health Related Social Needs: No Data to Display PFSH All Active Problems (Updated 09/21/23 @ 00:21 by Suleiman Sanchez DO) Fever (Acute) Pharyngitis (Acute) Closed fracture of left lateral malleolus (Acute ~10/02/22) Acute appendicitis (Acute) Low sperm motility (Acute) Medical History Condylomata sonia of penis Hair loss Gynecomastia Surgical History S/P appendectomy Open appendectomy for necrotic appendix Social History Smoking/Tobacco Use Status: Never Smoking risk assessment performed?: Yes Alcohol Intake: never Drug use: Never Substance use type: does not use Do you feel safe at home: Yes Do you feel safe in your relationship?: Yes
[2023-09-20 22:30] VITALS: TEMP 39.9
[2023-09-20] MEDS: Ketorolac 15 MG/ML VIAL IVP (22:35)
[2023-09-20] MEDS: Lactated Ringers 1,000 ML 1000 ML IV (22:38)
[2023-09-20 22:41] LABS: Abs Immature Grans 0.02 10^3/uL (0.0-0.06); Absolute Basophil Count 0.02 10^3/uL (0.0-0.2); Absolute Eosinophil Count 0.01 10^3/uL (0.0-0.7); Absolute Lymphocyte Count 0.54 10^3/uL (1.2-3.4); Absolute Monocyte Count 0.06 10^3/uL (0.1-0.8); Basophils % 0.2 %; Eosinophils % 0.1 %; HCT 45.5 % (40.0-50.0); HGB 15.3 g/dL (13.5-17.5); Immature Grans % 0.2 %; MCH 29.8 pg (27.0-33.0); MCHC 33.6 % (32.0-36.0); MCV 89 fL (80-95); Monocytes % 0.7 %; Neutrophils % 92.8 %; Platelet Count 154 10^3/uL (130-400); RBC 5.13 10^6/uL (4.36-5.78); RDW 12.3 % (11.8-14.1); RDW-SD 40.8 fL; WBC 9.05 10^3/uL (4.4-10.8)
[2023-09-20 22:50] LABS: Bilirubin Negative (Negative); Blood Negative (Negative); Clarity Clear (Clear); Glucose 100 mg/dL (Negative); Ketones Negative (Negative); Leukocyte Esterase Negative (Negative); Nitrite Negative (Negative); Urobilinogen 0.2 mg/dL (Up to 0.2)
[2023-09-20 22:51] LABS: Lactate 2.2 mmol/L (0.9-1.7)
[2023-09-20 23:13] LABS: ALT 20 U/L (16-63); AST 15 U/L (15-37); Albumin 3.5 g/dL (3.4-5.0); Alkaline Phosphatase 57 U/L (46-116); BUN 15 mg/dL (7-18); Bilirubin, Total 0.62 mg/dL (0.2-1.0); CREATININE 1.1 mg/dL (0.70-1.30); Chloride 103 mmol/L (98-107); Estimated GFR 88.12 (mL/min/1.73m2); Glucose 113 mg/dL (74-106); Sodium 140 mmol/L (136-145); TSH (W/Ref FT4) 1.68 uIU/mL (0.36-3.74); Total Protein 7.5 g/dL (6.4-8.2); Troponin I < 50 ng/L (< or =60)
[2023-09-20 23:18] LABS: COVID-19 PCR Negative (Negative); Influenza A PCR Negative (Negative); Influenza B PCR Negative (Negative); RSV PCR Negative (Negative)
[2023-09-20 23:19] LABS: Source Nasopharynx
[2023-09-20 23:23] LABS: Procalcitonin 0.7 ng/mL
[2023-09-21 00:26] VITALS: BP 116/62; PULSE 106; RESP 18; TEMP 38.4; O2SAT 97
[2023-09-21 00:32] LABS: Lactate 1.1 mmol/L (0.6-1.4)
[2023-09-21 00:46] VITALS: BP 134/71; PULSE 96; RESP 18; TEMP 37.9; O2SAT 95
--- NOTE | 2023-09-21 00:57 | DI.VRAD_ITS ---
PROCEDURE INFORMATION: Exam: XR Chest Exam date and time: 09/20/2023 11:21 PM Age: 37 years old Clinical indication: Fever; Additional info: Fever, R/O pneumonia TECHNIQUE: Imaging protocol: Radiologic exam of the chest. Views: 1 view. COMPARISON: CT ABDOMEN PELVIS W 05/15/2022 5:20 PM FINDINGS: Lungs: Unremarkable. No consolidation. Pleural spaces: Unremarkable. No pleural effusion. No pneumothorax. Heart/Mediastinum: Unremarkable. No cardiomegaly. Bones/joints: Unremarkable. IMPRESSION: No acute findings. Dictated and Authenticated by: Wilmer Benjamin MD. Ordering:MAGGIE Bearden MD
[2023-09-21 01:00] VITALS: BP 134/71; PULSE 96; RESP 18; TEMP 37.9; O2SAT 95
--- NOTE | 2023-09-22 11:29 | W.ED.FU ---
Date of service: 09/22/23 Follow Up Plan: Positive blood culture, preliminary gram-negative rods. Called the patient back, states he has been continuing his penicillin, is feeling largely improved though still tired, has not had worsening fever. I recommended to the patient that he return to the emergency department for reevaluation and likely admission for intravenous antibiotics, patient is comfortable with this plan and will return to the ED by personal vehicle. Rivka Haro MD
[2023-09-22 11:32] LABS: Lyme Ab w Rflx to Lyme Confirm Negative (Negative)
[2023-09-24 23:51] LABS: Anaplasma phagocytophilum Negative (Negative); B. miyamotoi PCR Negative (Negative); Babesia divergens/MO-1 Negative (Negative); Babesia duncani Negative (Negative); Babesia microti Negative (Negative); Ehrlichia chaffeensis Negative (Negative); Ehrlichia ewingii/canis Negative (Negative); Ehrlichia muris eauclairensis Negative (Negative)
== END 2023-09-21 01:04 | disposition home or self-care (01) ==
PROVIDERS: Emergency Provider Student in an Organized Health Care Education/Training Program; PCP Physician Assistant
DX: J02.9 Acute pharyngitis, unspecified (principal); R50.9 Fever, unspecified
CPT/HCPCS: 80053; 84145; 87040; 87637; 87798; 93005; 96361; 96374; 99284; 71045; 81003; 83605; 84443; 84484; 85025; 86618; 87086; 93010; 99283; J1885

== ENCOUNTER 2023-09-20 22:52 | Outpatient (REF) | payer SELFPAY | END 2023-09-20 22:53 | disposition home or self-care (01) | LOC: LBN 22:52 | PROVIDERS: PCP Physician Assistant; Visit Provider Family Medicine | DX: J02.9 Acute pharyngitis, unspecified (principal); R50.9 Fever, unspecified | CPT/HCPCS: 87070 ==

== ENCOUNTER 2023-09-22 12:25 | Inpatient (IN) | payer OTHER, SELFPAY ==
[2023-09-22 12:35] VITALS: BP 148/70; PULSE 89; RESP 16; TEMP 37; O2SAT 96
--- NOTE | 2023-09-22 12:51 | ED.GENADUL_ITS ---
Discharge Plan Disposition Patient Disposition: Admit to [facility] Condition: Stable Discharge Details Chief Complaint: Recheck Clinical Impression: Gram-negative bacteremia Admit Date/Time: 09/22/23 12:54 Admit Provider: Devante Lima Attending Provider: Devante Lima Primary Care Provider: Venancio Mandel ED Provider: Rivka Haro General Date/Time Provider Initiated Documentation: 09/22/23 12:30 . Limitations to Documentation: no limitations . Information obtained by: patient . HPI Narrative: MDM: In brief, this is a 37-year-old male patient with a recent evaluation for pharyngitis, presenting with positive blood cultures. My differential includes but is not limited to bacteremia, certainly considered seeding from an alternative infectious source such as pharyngitis, skin and soft tissue infection, intra-abdominal infection, though there are minimal localizing symptoms. The patient is reassuringly afebrile at this time and hemodynamically appropriate. He has no headache, change in mental status, nor meningismus to increase my concern for meningitis or encephalitis. ED course: I reviewed the patient's laboratory studies from his visit earlier this evening, and obtained repeat laboratory studies to include CBC, CMP, and lactate. These show no leukocytosis, anemia, or thrombocytopenia. Chemistry panel is without electrolyte derangement, evidence of kidney injury or liver disease. I have provided the patient with a dose of ceftriaxone, and reached out to the hospitalist service who is graciously accepted this patient for admission for intravenous antibiotics. Patient was transferred from our department without incident. Rivka Haro MD HPI: This is a 37-year-old male patient without significant past medical history other than a pen to ectomy who is presenting for evaluation of positive blood cultures. Of note, the patient was seen in this department within the last 24 hours for evaluation of fever, sore throat, and general malaise. During that evaluation he had reassuring laboratory studies, was seen with the appropriate, responded well to conservative management and was discharged. He was noted to have a positive blood culture with gram-negative rods, and was contacted and advised to come back to the emergency department for intravenous antibiotics. The patient reports that since discharge he is actually felt quite well. He still feels very fatigued and rundown, but has not had another fever since discharge. He reports that he has been eating less than his typical but feels like he is able to stay hydrated. His sore throat is still present but is improved. He is otherwise without headache, changes in vision, chest pain, abdominal pain, changes in bowel or bladder habits. Had a negative COVID and strep swab during his last visit Exam: Gen: Awake and alert, in no apparent distress HEENT: Non-icteric sclera, no conjunctival injection. Posterior pharynx with no significant redness, exudates or lesions Neck: Supple Lungs: No apparent respiratory distress, normal respiratory effort. Lung sounds clear and equal bilaterally CV: Appears well perfused, heart with regular rate and rhythm, strong distal pulses Abdomen: Non-distended, soft MSK: Moves 4 extremities without apparent limitation in ROM Skin: Visualized skin without rashes, cyanosis. Neuro: Normal Gait, no obvious focal deficits or facial asymmetry. Speaks in full, clear sentences. Psych: Appropriate for situation. Related Data Home Medications ?Medication ?Instructions ?Recorded ?Confirmed finasteride 1 mg tablet 1 mg PO DAILY 05/15/22 09/22/23 Allergies Allergy/AdvReac Type Severity Reaction Status Date / Time No Known Allergies Allergy Unverified 09/20/23 22:41 General Stated Complaint: Recheck JARAD: 4 Course Vital Signs Vital signs: Vital Signs Temperature 37.0 C 09/22/23 12:35 Pulse 89 09/22/23 12:35 Respiratory Rate 16 09/22/23 12:35 Blood Pressure 148/70 H 09/22/23 12:35 Pulse Oximetry 96 09/22/23 12:35 Temperature 37.0 C 09/22/23 12:35 Temperature Source Tympanic 09/22/23 12:35 Pulse 89 09/22/23 12:35 Respiratory Rate 16 09/22/23 12:35 Blood Pressure 148/70 H 09/22/23 12:35 Blood Pressure Position Sitting 09/22/23 12:35 Pulse Oximetry 96 09/22/23 12:35 Oxygen Delivery Method Room Air 09/22/23 12:35 Oxygen Flow Rate 0 09/22/23 12:35 Pain Level 0 09/22/23 12:35 Medical Decision Making Quality:SDOH Health Related Social Needs: No Data to Display PFSH All Active Problems (Updated 09/22/23 @ 15:46 by Rivka Haro MD) Gram-negative bacteremia (Acute) Fever (Acute) Pharyngitis (Acute) Closed fracture of left lateral malleolus (Acute ~10/02/22) Acute appendicitis (Acute) Low sperm motility (Acute) Medical History Condylomata sonia of penis Hair loss Gynecomastia Surgical History S/P appendectomy Open appendectomy for necrotic appendix Social History Smoking/Tobacco Use Status: Never Smoking risk assessment performed?: Yes Alcohol Intake: never Drug use: Never Substance use type: does not use Housing: house Do you feel safe at home: Yes Do you feel safe in your relationship?: Yes
--- NOTE | 2023-09-22 12:55 | HPE_ITS ---
Date of service: 09/22/23 Time of Service: 12:55 Assessment and Plan Assessment and plan (1) Gram-negative bacteremia: Status: Acute Assessment and plan: - Initially presented to the ED on the evening of 09/20/2023 with fever and sore throat that was thought to have been potentially secondary to viral upper respiratory infection and mild pharyngitis -During the ED visit, patient was documented last temperature early in the morning at 00:26 on 09/21/2023 101.2 ?F -Patient will require IV antibiotics, received first dose of ceftriaxone in the emergency department, and assuming he remains afebrile will have 1 additional dose tomorrow afternoon 09/23/2023 prior to transition to presumed p.o. cefpodoxime to complete antibiotic course -Continue to monitor for additional fevers -While patient's symptoms were upper respiratory in nature, UA was negative and there were no other signs for potential source of infection -Follow-up a.m. CBC History of Present Illness History of Present Illness Chief Complaint: called back for gram negative blood cultures from PM 09/19 Narrative: Previously healthy 37-year-old male who initially presented to the emergency department late in the evening on 09/20/2023 for mild fever and sore throat and was found to have had a mild pharyngitis or viral upper respiratory infection was called back to the emergency department on the morning of 09/22/2023 for blood cultures. Regarding gram-negative rods. Patient states that since being seen in the ED late in the evening of 09/20/2023 he has not had any recurrence for symptoms and denies any sore throat, additional fevers at home, chills, lightheadedness, dizziness, nausea, vomiting, diarrhea or constipation. At this time he has no complaints or concerns, states that he feels well, and understands the plan to continue IV ceftriaxone until tomorrow afternoon 09/23/2023 where he can receive a second dose of ceftriaxone, 1 would have been afebrile for 48 hours prior to transition to p.o. antibiotic therapy. Review of Systems All systems reviewed & are unremarkable except as noted in HPI and below PFSH All Active Problems (Updated 09/22/23 @ 12:57 by Devante Lima MD) Gram-negative bacteremia (Acute) Fever (Acute) Pharyngitis (Acute) Closed fracture of left lateral malleolus (Acute ~10/02/22) Acute appendicitis (Acute) Low sperm motility (Acute) Medical History Condylomata sonia of penis Hair loss Gynecomastia Surgical History S/P appendectomy Open appendectomy for necrotic appendix Social History Smoking/Tobacco Use Status: Never Smoking risk assessment performed?: Yes Alcohol Intake: never Drug use: Never Substance use type: does not use Housing: house Do you feel safe at home: Yes Do you feel safe in your relationship?: Yes Meds Allergies and Home Medications Allergies Allergy/AdvReac Type Severity Reaction Status Date / Time No Known Allergies Allergy Unverified 09/20/23 22:41 Home Medications ?Medication ?Instructions ?Recorded ?Confirmed ?Type finasteride 1 mg tablet 1 mg PO DAILY 05/15/22 09/20/23 History methocarbamol 750 mg tablet 750 mg PO Q8H PRN abdominal pain 05/20/22 09/20/23 Rx #30 tabs Exam Narrative Exam Narrative: well appearing gentleman laying in bed in no acute distress, AOx4, heart RRR, lungs CTAB, abdomen soft, non-tender, non-distended Results Labs 09/22/23 13:46 09/22/23 13:46 Last Vital Signs Temp 98.6 F 09/22/23 12:35 Pulse 89 09/22/23 12:35 Resp 16 09/22/23 12:35 BP 148/70 H 09/22/23 12:35 Pulse Ox 96 09/22/23 12:35 Time Spent Time spent with Patient: >75 minutes Time was spent: preparing to see the patient(eg.review tests), obtaining and/or reviewing separately otained hiistory, ordering medications,tests, procedures, referring, communicating with other health healthcare management consultant, indepentently interpreting results, counseling the patient and care coordination
[2023-09-22 13:54] LABS: Lactate 0.7 mmol/L (0.6-1.4)
[2023-09-22 13:55] LABS: Abs Immature Grans 0.02 10^3/uL (0.0-0.06); Absolute Basophil Count 0.02 10^3/uL (0.0-0.2); Absolute Eosinophil Count 0.07 10^3/uL (0.0-0.7); Absolute Lymphocyte Count 0.46 10^3/uL (1.2-3.4); Absolute Monocyte Count 0.49 10^3/uL (0.1-0.8); Absolute Neutrophil Count 3.49 10^3/uL (1.2-6.7); Basophils % 0.4 %; Eosinophils % 1.5 %; HCT 46.9 % (40.0-50.0); HGB 15.4 g/dL (13.5-17.5); Immature Grans % 0.4 %; Lymphocytes % 10.1 %; MCH 29.8 pg (27.0-33.0); MCHC 32.8 % (32.0-36.0); MCV 91 fL (80-95); MPV 9.9 fL (8.0-11.0); Monocytes % 10.8 %; Neutrophils % 76.8 %; Platelet Count 152 10^3/uL (130-400); RBC 5.16 10^6/uL (4.36-5.78); RDW 12.5 % (11.8-14.1); WBC 4.55 10^3/uL (4.4-10.8)
[2023-09-22 14:09] VITALS: BP 136/76; PULSE 65; RESP 14; TEMP 37.6; O2SAT 98
[2023-09-22 14:14] LABS: ALT 50 U/L (16-63); AST 39 U/L (15-37); Albumin 3.2 g/dL (3.4-5.0); Alkaline Phosphatase 68 U/L (46-116); BUN 15 mg/dL (7-18); CREATININE 0.9 mg/dL (0.70-1.30); Calcium 8.8 mg/dL (8.5-10.1); Chloride 104 mmol/L (98-107); Estimated GFR 112.11 (mL/min/1.73m2); Glucose 108 mg/dL (74-106); Sodium 138 mmol/L (136-145); Total Protein 7.3 g/dL (6.4-8.2)
--- NOTE | 2023-09-22 14:19 | W.PC.ACHO ---
Registration Status: Primary Language: Preferred Language: ED Information & Data Chief Complaint Recheck 09/22/23 12:51 Triage Note States he had blood work 09/22/23 12:35 done two days ago and was called today to come back in . States only current symptom is fatigue; neck pain, back pain, swollen lymph nodes, PRESCOTT, and other previous symptoms have resolved. Medical / Surgical History (Last Reviewed 09/20/23 @ 22:27 by Suleiman Sanchez DO) Condylomata sonia of penis Hair loss Gynecomastia (Last Reviewed 09/20/23 @ 22:27 by Suleiman Sanchez DO) S/P appendectomy Most Recent Vital Signs Temperature 37.6 C H 09/22/23 14:09 Temperature Source Tympanic 09/22/23 12:35 Pulse 65 09/22/23 14:09 Pulse Rhythm Regular 09/22/23 14:09 Respiratory Rate 14 09/22/23 14:09 Respiratory Effort Normal, Non-Labored 09/22/23 14:09 Respiratory Depth Normal 09/22/23 14:09 Respiratory Pattern Normal 09/22/23 14:09 Blood Pressure 136/76 09/22/23 14:09 Blood Pressure Position Sitting 09/22/23 12:35 Pulse Oximetry 98 09/22/23 14:09 Oxygen Delivery Method Room Air 09/22/23 14:09 Oxygen Flow Rate 0 09/22/23 14:09 Pain Level 0 09/22/23 14:09 Allergies No Known Allergies Allergy (Unverified 09/20/23 22:41) Diet Orders Category Date Time Status Regular/Normal [DIET] Nutrition 09/22/23 Dinner Active Diagnostics 09/22/23 Range/Units 13:46 WBC 4.55 (4.4-10.8) 10^3/uL RBC 5.16 (4.36-5.78) 10^6/uL Hgb 15.4 (13.5-17.5) g/dL Hct 46.9 (40.0-50.0) % MCV 91 (80-95) fL MCH 29.8 (27.0-33.0) pg MCHC 32.8 (32.0-36.0) % RDW 12.5 (11.8-14.1) % Plt Count 152 (130-400) 10^3/uL MPV 9.9 (8.0-11.0) fL Immature Gran % 0.4 % Neutrophils % 76.8 % Lymphocytes % 10.1 % Monocytes % 10.8 % Eosinophils % 1.5 % Basophils % 0.4 % Nucleated RBC % 0.0 (0.0-0.3) % Absolute Neutrophils 3.49 (1.2-6.7) 10^3/uL Absolute Lymphocytes 0.46 L (1.2-3.4) 10^3/uL Absolute Monocytes 0.49 (0.1-0.8) 10^3/uL Absolute Eosinophils 0.07 (0.0-0.7) 10^3/uL Absolute Basophils 0.02 (0.0-0.2) 10^3/uL VBG Lactate 0.7 (0.6-1.4) mmol/L Sodium 138 (136-145) mmol/L Potassium 4.0 (3.5-5.1) mmol/L Chloride 104 (98-107) mmol/L Carbon Dioxide 28.0 (21.0-32.0) mmol/L Anion Gap 6.0 (3-11) mmol/L BUN 15 (7-18) mg/dL Creatinine 0.9 (0.70-1.30) mg/dL Est GFR (CKD-EPI 2020) 112.11 (mL/min/1.73m2) Glucose 108 H (74-106) mg/dL Calcium 8.8 (8.5-10.1) mg/dL Total Bilirubin 0.20 (0.2-1.0) mg/dL AST 39 H (15-37) U/L ALT 50 (16-63) U/L Alkaline Phosphatase 68 (46-116) U/L Total Protein 7.3 (6.4-8.2) g/dL Albumin 3.2 L (3.4-5.0) g/dL Intake and Output - 24 Hour Total 09/22/23 12:25 thru 09/22/23 12:35 Weight 79.379 kg Falls Risk Assessment History of Falls No History 09/22/23 14:09 Contributing Factors No Factors 09/22/23 14:09 Ambulatory Aids Independent 09/22/23 14:09 Tubes/Lines W/no contributing factors 09/22/23 14:09 Gait Evaluation No gait disturbance 09/22/23 14:09 Cognition No cognitive impairment 09/22/23 14:09 Fall Total Score 10 09/22/23 14:09 Level of Risk Standard/Low Risk 09/22/23 14:09 Problems (Last Reviewed 09/20/23 @ 22:27 by Suleiman Sanchez DO) Gram-negative bacteremia (Acute) v v v v v v v v v Sending and/or Receiving Nurses: Please use comment section below to note any information pertinent to the patient hand-off not included above. Information / Comments: PT presents to ER after call from provider r/t positive blood cultures. Pt here for IV abx. Report received from: EULA Brock
[2023-09-22] MEDS: cefTRIAXone 1 GM/50 ML BAG IVPB (14:47)
[2023-09-22] MEDS: Enoxaparin 40 MG/0.4 ML SYR SC (17:48)
[2023-09-22 19:36] VITALS: BP 129/70; PULSE 60; RESP 18; TEMP 37.2; O2SAT 100
[2023-09-22] MEDS: Normal Saline Flush 10 ML SYR IVP (20:00)
[2023-09-22 23:20] VITALS: BP 125/71; PULSE 60; RESP 18; TEMP 37.3; O2SAT 97
[2023-09-23 03:30] VITALS: BP 127/83; PULSE 70; RESP 16; TEMP 36.9; O2SAT 98
[2023-09-23] MEDS: Acetaminophen 325 MG TAB PO ×2 (03:39→09:08)
[2023-09-23] MEDS: Methocarbamol 750 MG TAB PO (05:20)
[2023-09-23 06:54] LABS: HCT 43.8 % (40.0-50.0); HGB 14.4 g/dL (13.5-17.5); MCH 29.4 pg (27.0-33.0); MCHC 32.9 % (32.0-36.0); MCV 89 fL (80-95); MPV 10.7 fL (8.0-11.0); Platelet Count 158 10^3/uL (130-400); RDW 12.5 % (11.8-14.1); RDW-SD 41.3 fL; WBC 4.41 10^3/uL (4.4-10.8)
[2023-09-23 07:11] LABS: Anion Gap 6.2 mmol/L (3-11); BUN 19 mg/dL (7-18); CO2 28.8 mmol/L (21.0-32.0); CREATININE 0.9 mg/dL (0.70-1.30); Calcium 8.5 mg/dL (8.5-10.1); Chloride 104 mmol/L (98-107); Estimated GFR 112.11 (mL/min/1.73m2); Glucose 103 mg/dL (74-106); Magnesium 1.7 mg/dL (1.8-2.4); Sodium 139 mmol/L (136-145)
[2023-09-23] MEDS: Normal Saline Flush 10 ML SYR IVP (09:10)
[2023-09-23] MEDS: cefTRIAXone 1 GM/50 ML BAG IVPB (11:51)
--- NOTE | 2023-09-23 12:03 | DSE_ITS ---
Date of service: 09/23/23 Time of Service: 12:03 DS: Diagnosis Discharge Diagnosis (1) Gram-negative bacteremia: Status: Acute Discharge Plan Disposition Patient Disposition: Home Condition: Good Discharge Details Reason For Visit: Gram Negative Bactermia Admit Date/Time: 09/22/23 12:54 Admit Provider: Devante Lima Attending Provider: Devante Lima Primary Care Provider: Venancio Mandel Hospital Course Hospital Course: Patient presented back to the hospital after blood cultures drawn from initial emergency room visit showed gram-negative rods. Patient received 2 doses of IV ceftriaxone during hospitalization and remained afebrile with last known fever at 00:26 on 09/21/2023. Given that patient remained afebrile since that time, received 2 doses of IV ceftriaxone, it was determined that he was stable for discharge home with an additional 5 days of p.o. cefpodoxime to complete antibiotic course for gram-negative bacteremia. Home Meds and New Rx's Prescriptions: New cefpodoxime 200 mg tablet 200 mg PO BID Qty: 11 0RF Rx Instructions: must administer with a meal/food Continued finasteride 1 mg Tablet 1 mg PO DAILY Discharge Instructions Stand Alone Forms: Nursing Discharge Form Referrals: Venancio Mandel [Primary Care Provider] - (Please call Monday to make a follow up appointment for 1-2 weeks. ) Activity:: Activity as Tolerated Equipment/Supplies:: No Equipment Needed Diet:: As Tolerated Discharge Orders Discharge Orders: Discharge Order (Routine); Ordered 09/23/23 Ordered By: Devante Lima DS: Summary Time Spent with Patient providing and/or coordinating discharge services: Greater than 30 minutes Status at Discharge Functional status at discharge: independent ambulation Overall status at discharge: patient is back to baseline Mental Status: mental status grossly normal Speech and Movement: speech and movement normal Mood: congruent mood Affect: normal affect Quality:SDOH Health Related Social Needs: No Data to Display Exam Narrative Exam Narrative: well appearing gentleman laying in bed in no acute distress, AOx4, heart RRR, lungs CTAB, abdomen soft, non-tender, non-distended Psych Mental Status: mental status grossly normal Speech and Movement: speech and movement normal Mood: congruent mood Affect: normal affect DS: Data Vitals/I&O Vitals and I&O: Vital Signs Temperature 98.4 F 09/23/23 03:30 Temperature Source Tympanic 09/23/23 03:30 Pulse 70 09/23/23 03:30 Pulse Rhythm Regular 09/23/23 10:15 Respiratory Rate 16 09/23/23 03:30 Respiratory Effort Normal, Non-Labored 09/23/23 10:15 Respiratory Depth Normal 09/23/23 10:15 Respiratory Pattern Normal 09/23/23 10:15 Blood Pressure 127/83 09/23/23 03:30 Blood Pressure Position Sitting 09/22/23 12:35 Pulse Oximetry 98 09/23/23 03:30 Oxygen Delivery Method Room Air 09/23/23 03:30 Oxygen Flow Rate 0 09/23/23 03:30 Pain Level 2 09/23/23 09:08 Intake & Output 09/22/23 09/23/23 09/23/23 17:59 05:59 17:59 Intake Total 850 / 850 Output Total 2099 / 2100 Balance -1250 / -1250 Weight 180 lb Intake: IV Oral 840 / 840 Output: Urine 2099 Other: Urine Color Yellow Yellow Urine Appearance Clear Clear Clear Urine Odor Normal Voiding Methods Toilet Urinal Urinal Data Completed and Pending Labs on day of discharge: Labs from last 24 hours 09/23/23 09/22/23 05:50 13:46 WBC 4.41 4.55 RBC 4.90 5.16 Hgb 14.4 15.4 Hct 43.8 46.9 MCV 89 91 MCH 29.4 29.8 MCHC 32.9 32.8 RDW 12.5 12.5 Plt Count 158 152 MPV 10.7 9.9 Immature Gran % 0.4 Neutrophils % 76.8 Lymphocytes % 10.1 Monocytes % 10.8 Eosinophils % 1.5 Basophils % 0.4 Nucleated RBC % 0.0 Absolute Neutrophils 3.49 Absolute Lymphocytes 0.46 L Absolute Monocytes 0.49 Absolute Eosinophils 0.07 Absolute Basophils 0.02 VBG Lactate 0.7 Sodium 139 138 Potassium 4.0 4.0 Chloride 104 104 Carbon Dioxide 28.8 28.0 Anion Gap 6.2 6.0 BUN 19 H 15 Creatinine 0.9 0.9 Est GFR (CKD-EPI 2020) 112.11 112.11 Glucose 103 108 H Calcium 8.5 8.8 Magnesium 1.7 L Total Bilirubin 0.20 AST 39 H ALT 50 Alkaline Phosphatase 68 Total Protein 7.3 Albumin 3.2 L PFSH All Active Problems (Updated 09/22/23 @ 15:46 by Rivka Haro MD) Gram-negative bacteremia (Acute) Fever (Acute) Pharyngitis (Acute) Closed fracture of left lateral malleolus (Acute ~10/02/22) Acute appendicitis (Acute) Low sperm motility (Acute) Medical History Condylomata sonia of penis Hair loss Gynecomastia Surgical History S/P appendectomy Open appendectomy for necrotic appendix Social History Smoking/Tobacco Use Status: Never Smoking risk assessment performed?: Yes Alcohol Intake: never Drug use: Never Substance use type: does not use Housing: house Do you feel safe at home: Yes Do you feel safe in your relationship?: Yes Time Spent with Patient Time Spent with Patient: <45 minutes Time was spent: preparing to see the patient(eg.review tests), obtaining and/or reviewing separately otained hiistory, ordering medications,tests, procedures, referring, communicating with other health healthcare sales representative, indepentently interpreting results, counseling the patient and care coordination
== END 2023-09-23 13:24 | disposition home or self-care (01) | DRG 872 ==
LOC: ER 13:13 → MS 14:06
PROVIDERS: Admitting Provider Family Medicine; Emergency Provider Emergency Medicine; PCP Physician Assistant; Visit Provider Family Medicine
DX: R78.81 Bacteremia (principal); R50.9 Fever, unspecified; J02.9 Acute pharyngitis, unspecified
CPT/HCPCS: 00123; 36415; 80048; 80053; 85027; 99285; J1650; 83605; 83735; 85025; 99223; 99238; J0696